=== PATIENT | female | born 1960 | race Caucasian/White ===

== ENCOUNTER → 2024-05-03 | Outpatient (CLI) | payer OTHER, SELFPAY ==
[2024-05-03 13:10] LABS: Basophils # (Auto) 0.1 Thou/mm3 (0.0-0.2); Basophils % (Auto) 1 % (0-2.5); Eosinophils # (Auto) 0.1 Thou/mm3 (0.0-0.5); Eosinophils % (Auto) 1 % (0-10); Hematocrit 40.3 % (36.0-46.0); Hemoglobin 13.7 g/dL (12.0-16.0); Immature Granulocytes % (Auto) 0 % (0-0); Immature Granulocytes Auto 0.03 Thou/mm3 (0.00-0.00); Lymphocytes # (Auto) 2.7 Thou/mm3 (1.0-4.8); Lymphocytes % (Auto) 35 % (10-50); Mean Corpuscular Hemoglobin 31.6 pg (25.0-35.0); Mean Corpuscular Volume 93 fL (80-100); Monocytes # (Auto) 0.6 Thou/mm3 (0.0-0.8); Monocytes % (Auto) 8 % (0-12); Neutrophils # (Auto) 4.3 Thou/mm3 (1.8-7.7); Neutrophils % (Auto) 55 % (37-80); Nucleated Red Blood Cell % 0 /100 WBC (0); Platelet Count 300 Thou/mm3 (140-440); RDW Standard Deviation 45.7 fL (36.4-46.3); Red Blood Count 4.34 Miln/mm3 (4.00-5.20); White Blood Count 7.8 Thou/mm3 (3.6-11.0)
[2024-05-03 13:24] LABS: Alanine Aminotransferase 35 U/L (10-49); Albumin, Serum 4.4 gm/dL (3.4-4.8); Alkaline Phosphatase 70 U/L (46-116); Anion Gap 8 (7-16); Aspartate Amino Transferase 19 U/L (0-34); BUN/Creatinine Ratio 24 Ratio (12-20); Bilirubin,Total 0.4 mg/dL (0.3-1.2); Blood Urea Nitrogen 17 mg/dL (9-23); Calcium 9.5 mg/dL (8.3-10.6); Calcium (Corrected) 9.5 mg/dL (8.5-10.1); Carbon Dioxide 26.3 mMol/L (20.0-31.0); Chloride 107 mMol/L (98-107); Creatinine (Component) 0.7 mg/dL (0.6-1.3); Globulin 2.2 gm/dL (2.3-3.5); Glucose 95 mg/dL (74-106); Osmolality,Calculated 282 (275-295); Potassium 4.1 mMol/L (3.4-5.1); Sodium 141 mMol/L (136-145); Total Protein 6.6 gm/dL (5.7-8.2); eGFR > 60 See Note
== END | disposition home or self-care (01) ==
PROVIDERS: PCP Family Medicine; Referring Provider Physician Assistant; Visit Provider Physician Assistant
DX: K62.5 Hemorrhage of anus and rectum (principal); Z76.89 Persons encountering health services in other specified circumstances
CPT/HCPCS: 36415; 80053; 85025

== ENCOUNTER → 2024-05-06 | Outpatient (CLI) | payer OTHER, SELFPAY ==
[2024-05-06 09:51] LABS: OBS Card Expiration Date 2026-09; OBS Card Lot # 23001; OBS Performed By LAB; OBS QC OK? Yes
[2024-05-06 12:01] LABS: OBS Developer Lot # 23003; Occult Blood, Stool Negative (Negative); Occult Blood, Stool #2 Negative (Negative); Occult Blood, Stool #3 Negative (Negative)
== END | disposition home or self-care (01) ==
LOC: SLDO 09:45
PROVIDERS: PCP Physician Assistant; Referring Provider Physician Assistant; Visit Provider Physician Assistant
DX: Z12.11 Encounter for screening for malignant neoplasm of colon (principal); K62.5 Hemorrhage of anus and rectum; Z76.89 Persons encountering health services in other specified circumstances
CPT/HCPCS: 82270

== ENCOUNTER 2024-05-31 07:00 | Day surgery (SDC) | payer OTHER, SELFPAY ==
[2024-05-31] VITALS (24 sets, daily range): BP systolic 101–181; BP diastolic 44–108; PULSE 70–99; RESP 12–20; TEMP 36.2–36.4; O2SAT 93–100; BMI 36.2
[2024-05-31] MEDS: DiphenhydrAMINE INJ 50 MG/ML VIAL 25 MG IV (09:27)
[2024-05-31] MEDS: fentaNYL CIT INJ 50 mCg/ML AMP 2ML (ASD USE ONLY) IV (09:28)
[2024-05-31] MEDS: MEPERIDINE INJ 25 MG/ML VIAL (ASD USE ONLY) IV (09:28)
[2024-05-31] MEDS: MIDAZOLAM INJ 1 MG/ML VIAL 2 ML (ASD USE ONLY) 2 MG IV (09:29)
--- NOTE | 2024-05-31 10:25 | SUR.PHASEII ---
pt refused juice or water intake.
== END 2024-05-31 10:45 | disposition home or self-care (01) ==
PROVIDERS: PCP Family Medicine; Referring Provider Surgery; Visit Provider Surgery
PROC: 0DBE8ZX Excision of Large Intestine, Via Natural or Artificial Opening Endoscopic, Diagnostic (ICD-10-PCS; CPT 45380; principal; 2024-05-31 11:30)
DX: C20 Malignant neoplasm of rectum (principal); K57.31 Diverticulosis of large intestine without perforation or abscess with bleeding
CPT/HCPCS: 45381; 45385; A4649; J1200; J2175; J2250; J3010

== ENCOUNTER 2024-06-02 13:02 | Outpatient (AMB) | payer OTHER, SELFPAY ==
[2024-06-02 13:14] VITALS: PULSE 83; RESP 18; TEMP 35.6; O2SAT 94; BMI 36.1
--- NOTE | 2024-06-02 13:14 | PD.GSCLVISIT ---
Vital Signs - [facility] 06/02/24 13:14 Height 1.63 m Height Method Stated Weight 95.878 kg Weight Measurement Method Standing Scale BMI 36.1 Blood Pressure Source Automatic Cuff Blood Pressure Location Right Upper Arm Position Sitting Respiration 18 Pulse 83 Pulse Source Monitor Temp 96.0 F L Temp Source Temporal Artery Scan Pulse Oximetry (%) 94 L Oxygen Delivery Method Room Air Med/Allergies Allergies & Medications Allergies No Known Drug Allergies Allergy (Verified 06/02/24 13:16) Medication Reconciliation No Known Home Medications 08/31/23 [History Confirmed 06/02/24] MA Intake Visit Data Collection New Patient or Established: Established Patient (seen at [facility] within 3 years) Seen by Clinical Staff ONLY (RN/MA): No Reason for Visit:: COLONOSCOPY RESULTS Pain Present Currently: No Pain Location: Buttock Pain scale:: 0 Pain Scale Used: Curry-Tomlin/Numerical Research Administrator Required: No PCP or OBGYN visit in last 3 months: Yes Hx Now: No Do You Feel Safe at Home: Yes Authorities Contacted: N/A Smoking Status Smoking Status: Never smoker Immunization / Flu Flu Vaccine in the Last 12 Months: No Flu Vaccine Exclusion Criteria: No Exclusion Criteria Past Medical History Past Medical History NEUROLOGIC: Negative Neurological Disorders or Seizures CARDIAC: Negative Cardiac Disorders or Congestive Heart Failure RESPIRATORY: Negative Chronic Obstructive Pulmonary Disease (COPD) GASTROINTESTINAL: Positive Gastrointestinal Disorders (rectal bleeding, LLQ pain) GENITOURINARY: Negative Genitourinary Disorders or Renal Disease MUSCULOSKELETAL: Negative Musculoskeletal Disorders ENDOCRINE: Negative Diabetes Mellitus Type 1 or Diabetes Mellitus Type 2 PSYCHO/SOCIAL: Negative Depression or Anxiety OTHER HISTORY: Negative Blood Transfusions, Blood Transfusion Reaction (na), Anesthesia Reactions, Chicken Pox, Measles or Mumps Surgical History SURGICAL: Positive Section Social History SMOKING STATUS: Smoking status: Never smoker SECOND HAND EXPOSURE: second hand exposure: No ALCOHOL: Alcohol Intake: Never Travel Risk Travel Hx Recent Travel: No HPI HPI Narrative 64F otherwise healthy who is here to discuss colonoscopy results. Pt was found to have well-differentiated rectal adenocarcinoma. She reports feeling well overall with no pain and no bleeding since colonoscopy. She states that she underwent CT AP in February to evaluate rectal bleeding and was advised it was normal ROS Review of Systems Systems Reviewed: All systems reviewed, normal except as documented Objective/Exam General General Appearance: alert, cooperative and well groomed Resp Respiratory exam: Absent respiratory distress Results Pathology of rectal mass: invasive adenocarcinoma well-differentiated Assessment & Plan Diagnosis / Problem List (1) Rectal adenocarcinoma: Status: Acute Assessment & Plan: 64F with newly diagnosed rectal adenocarcinoma, currently feeling well with no complaints. I explained that staging workup will include pelvic MRI and CT AP which I have ordered stat, and I sent a referral to oncology as well. Pending staging workup we will discuss surgery in greater detail. All questions were answered and pt expressed understanding Office Procedures GNS Level of Care Nursing/Assessment Patient Status: Established Patient Nursing Assessment/Reassesment: Medication Reconciliation, Update PMH in EMR and Vital Signs Coordination of Care: Complex Care and Chronic Disease 1-5, Education Complex Pt/Fam, Consent,records obtained, informed consent, Results/Orders obtained and Staff clarify orders Established Patient Charge Established Patient Point Assignment: 95 Established Patient Point Charge: EP Level 3 (80-115) Patient Portal Questionaires Social History Tobacco History Smoking Status: Never smoker Second Hand Smoke Exposure: No Alcohol History Alcohol Intake: Never Domestic Abuse History Do You Feel Safe at Home: Yes Review of Systems Report any current symptoms Only answer those that you have currently: Past Medical History Past Medical History Have you ever been diagnosed with any of the following: Neurological Problems Seizures: No Cardiology Problems Congestive Heart Failure: No Respiratory Problems Chronic Obstructive Pulmonary Disease (COPD): No Genital/Urinary Problems Renal Disease: No Endocrine Problems Diabetes Mellitus Type 1: No Diabetes Mellitus Type 2: No Psychologic Problems Depression: No Anxiety: No Other Problems Blood Transfusions: No Blood Transfusion Reaction: No (na) Anesthesia Reactions: No Chicken Pox: No Measles: No Mumps: No
== END 2024-06-02 13:17 | disposition home or self-care (01) ==
LOC: HODSRG 13:02
PROVIDERS: PCP Family Medicine; Referring Provider Family Medicine; Supervising Provider Surgery; Visit Provider Surgery
DX: C20 Malignant neoplasm of rectum (principal)
CPT/HCPCS: 99213; G0463

== ENCOUNTER → 2024-06-10 | Outpatient (CLI) | payer OTHER, SELFPAY ==
[2024-06-09 16:35] LABS: Albumin, Serum 4.4 gm/dL (3.4-4.8); Anion Gap 9 (7-16); BUN/Creatinine Ratio 24 Ratio (12-20); Blood Urea Nitrogen 17 mg/dL (9-23); Calcium 9.4 mg/dL (8.3-10.6); Calcium (Corrected) 9.4 mg/dL (8.5-10.1); Carbon Dioxide 27.6 mMol/L (20.0-31.0); Chloride 106 mMol/L (98-107); Creatinine (Component) 0.7 mg/dL (0.6-1.3); Glucose 98 mg/dL (74-106); Osmolality,Calculated 286 (275-295); Phosphorous 3.1 mg/dL (2.4-5.1); Potassium 4.2 mMol/L (3.4-5.1); Sodium 143 mMol/L (136-145); eGFR > 60 See Note
--- NOTE | 2024-06-10 | XR_ITS ---
Examination: CT chest with intravenous contrast CT abdomen with intravenous contrast CT pelvis with intravenous contrast 2-D coronal and sagittal reconstructions Time of exam: June 10, 2024 0756 hours INDICATIONS: Diagnosis this month malignant neoplasm of the rectum on colonoscopy, rectal bleeding, lower abdominal pain several weeks, staging CTDI: vol (mGy) : 32.91 DLP: (mGycm): 1354 Technique: Multiple axial images of the chest, abdomen and pelvis with intravenous contrast, 3.0 mm slice thickness. Images obtained post intravenous injection Isovue 370 60 cc. 2-D sagittal and coronal reconstructions. Low dose protocols were performed. One or more of the following dose reduction techniques were used; automated exposure control, adjustment of the mA and/or KV according to patient size, use of iterative reconstruction technique. Findings: No thoracic aortic aneurysm dilatation No pulmonary artery emboli No paratracheal tracheobronchial or bronchopulmonary adenopathy Nodule with calcifications in the right upper lobe, 7 mm, image 131 No pneumonia, pulmonary edema or pleural disease Hepatomegaly 19 cm No liver or splenic lesion Small retrocardiac gastric hernia No pancreatic or adrenal mass No renal or ureteral calculi No periaortic pericaval lymphadenopathy Normal appendix No bowel obstruction No definite colonic lesion identified No pelvic lymphadenopathy Moderate osteopenia IMPRESSION: No findings of metastatic disease No uterine or adnexal mass
== END | disposition home or self-care (01) ==
PROVIDERS: PCP Physician Assistant; Referring Provider Physician Assistant; Visit Provider Physician Assistant
DX: K62.5 Hemorrhage of anus and rectum (principal); C20 Malignant neoplasm of rectum
CPT/HCPCS: 36415; 71260; 74177; 80069; A4649; Q9967

== ENCOUNTER 2024-06-15 13:47 | Outpatient (RCR) | payer OTHER, SELFPAY ==
--- NOTE | 2024-06-15 17:01 | CTCCONSULT_ITS ---
[facility] [address] [place], [place] [address] Consultation Note Date: 06/15/2024 MR#: [id number] Name: MARCIANO JONES : 1960 Dx: C20 Malignant neoplasm of rectum Attending physician. Little Stanton PA-C Referring physician. Lanny Boyer MD Reason for consultation. Presumably recent diagnosis of colorectal cancer referred to the cancer treatment center. 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 Underwent colonoscopy performed by Dr. Boyer, with initial digital exam being negative. Findings revealed nonobstructive large mass around 15 cm proximal to the anus which is known circumferential. There was multiple large mouth diverticula found in the transverse colon and ascending colon. Biopsy of the rectal mass revealed invasive adenocarcinoma well-differentiated with no loss of expression. Patient had CT scan 06/10/2024 chest abdomen pelvis.which revealed no finding of metastatic disease uterine or adnexal masses. Patient has MRI of the pelvis pending this Thursday. Patient now referred to the cancer treatment center. Past Medical History: History of ear infections chickenpox tonsillitis Meds. 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 2 pregnancies 1 lives in [place] denies drinking smoking Review of Systems: Has had some nocturia heartburn muscle pain weight gain Physical Exam: General: Adequate nourished appearing lady in no acute distress HEENT: Atraumatic no cephalic extraocular is intact no oral lesion no cervical or supraclavicular adenopathy CV: Chest clear to all station heart regular rate and rhythm ABD: Soft no organomegaly or tenderness EXT: No signs of clubbing or edema. Assessment: 1. Patient with rectal mass 15 cm from the anal verge. Biopsy + adenocarcinoma 2. No mass noted on CT scan MRI pelvis is pending. 3. Has follow-up with medical oncologist Dr. Guido in a few days. 4. Will make recommendations regarding comprehensive treatment afterward. 5 Thank you very much for allowing us to evaluate this very nice patient and [employer] employee.. Electronically signed by: Pascual Ramos MD, DABR 06/15/2024 4:58 PM
== END 2024-06-17 23:59 | disposition home or self-care (01) ==
LOC: SCTC 13:47
PROVIDERS: PCP Physician Assistant; Referring Provider Surgery; Visit Provider Radiology Therapeutic Radiology
DX: C20 Malignant neoplasm of rectum (principal)
CPT/HCPCS: 99213; G0463

== ENCOUNTER → 2024-06-18 | Outpatient (CLI) | payer OTHER, SELFPAY ==
--- NOTE | 2024-06-18 14:45 | XR_ITS ---
Examination: MRI pelvis with intravenous contrast. MRI pelvis without intravenous contrast. Date and time of exam: June 18, 2024 1424 hrs. Indications: Diagnosis malignant neoplasm rectum on colonoscopy with biopsy May 31, 2024 Technique: Multiple axial, sagittal and coronal sections of the pelvis obtained. Transverse images, TR 6020, TE 107. T1 weighted transverse images, TR 582, TE 9.5. T2-weighted sagittal images, TR 4000, TE 105. T2-weighted sagittal images, TR 4000, TE 5. Coronal images, TR 4210, TE 107. Axial and coronal images are obtained post 18 cc intravenous injection, gadolinium. Findings: No free fluid in the pelvis Axial image 19 demonstrates a right external iliac lymph node, 14 mm Right common femoral lymph nodes, the largest 8 mm No sigmoid colon or rectal mass is depicted There is minimal thickening of the rectal wall Uterine areas of fibroid degeneration, the largest 22 mm Homogeneous osseous marrow signal Impression: Minimal rectal wall thickening, no discrete rectal mass 14 mm right external iliac lymph node, small right common femoral lymph nodes
--- NOTE | 2024-06-18 21:02 | PRELIM_ITS ---
MRI of the pelvis without and with intravenous gadolinium. June 18, 2024 at 1424 hours Clinical History: Rectal CA. Comparison: None. Findings: There is thickening versus underdistention of the rectum. No evidence of discrete mass identified within the rectum. The perirectal fat planes appear unremarkable. There are uterine fibroids, the largest in the left lateral wall measures 2.4 x 2.2 cm. The endometrium is normal in thickness and appears unremarkable. The junctional zone is normal in thickness and appearance. Both ovaries appear unremarkable. There are prominent right external iliac and common femoral lymph nodes, the largest right external iliac lymph node measuring 1.1 x 1.1 cm. Degenerative changes are identified in the spine. No free fluid is noted. Impression: Thickening versus underdistention of the rectum. Recommend clinical correlation. Report Electronically Signed By: Shay Matos 06/18/2024 9:02:06 PM [EST]
== END | disposition home or self-care (01) ==
PROVIDERS: PCP Surgery; Referring Provider Radiology Therapeutic Radiology; Visit Provider Surgery
DX: C20 Malignant neoplasm of rectum (principal)
CPT/HCPCS: 72197; A9579

== ENCOUNTER → 2024-06-29 | Outpatient (CLI) | payer OTHER, SELFPAY ==
[2024-06-29 15:45] LABS: Basophils # (Auto) 0.1 Thou/mm3 (0.0-0.2); Basophils % (Auto) 1 % (0-2.5); Eosinophils # (Auto) 0.1 Thou/mm3 (0.0-0.5); Eosinophils % (Auto) 2 % (0-10); Hematocrit 37.2 % (36.0-46.0); Hemoglobin 12.6 g/dL (12.0-16.0); Immature Granulocytes % (Auto) 0 % (0-0); Immature Granulocytes Auto 0.01 Thou/mm3 (0.00-0.00); Lymphocytes # (Auto) 2.6 Thou/mm3 (1.0-4.8); Lymphocytes % (Auto) 38 % (10-50); Mean Corpuscular HGB Conc 33.9 g/dl (31.0-37.0); Mean Corpuscular Hemoglobin 32.1 pg (25.0-35.0); Mean Corpuscular Volume 95 fL (80-100); Monocytes # (Auto) 0.6 Thou/mm3 (0.0-0.8); Monocytes % (Auto) 8 % (0-12); Neutrophils # (Auto) 3.5 Thou/mm3 (1.8-7.7); Neutrophils % (Auto) 52 % (37-80); Nucleated Red Blood Cell % 0 /100 WBC (0); Platelet Count 285 Thou/mm3 (140-440); RDW Standard Deviation 47.4 fL (36.4-46.3); Red Blood Count 3.92 Miln/mm3 (4.00-5.20); White Blood Count 6.9 Thou/mm3 (3.6-11.0)
[2024-06-29 16:02] LABS: Ferritin 102 ng/mL (7.3-270.7); Iron 102 mcg/dL (50-170); Percent Iron Saturation 30 % (20-55); Total Iron Binding Capacity 336 mcg/dL (250-425); Unsaturated Iron Binding 234 (225-295)
[2024-06-29 16:03] LABS: Alanine Aminotransferase 40 U/L (10-49); Albumin, Serum 4.1 gm/dL (3.4-4.8); Alkaline Phosphatase 63 U/L (46-116); Anion Gap 6 (7-16); Aspartate Amino Transferase 24 U/L (0-34); BUN/Creatinine Ratio 25 Ratio (12-20); Bilirubin,Total 0.3 mg/dL (0.3-1.2); Blood Urea Nitrogen 15 mg/dL (9-23); Calcium 9.3 mg/dL (8.3-10.6); Calcium (Corrected) 9.3 mg/dL (8.5-10.1); Carbon Dioxide 29.7 mMol/L (20.0-31.0); Chloride 108 mMol/L (98-107); Creatinine (Component) 0.6 mg/dL (0.6-1.3); Globulin 2.1 gm/dL (2.3-3.5); Glucose 110 mg/dL (74-106); Osmolality,Calculated 288 (275-295); Potassium 3.4 mMol/L (3.4-5.1); Sodium 144 mMol/L (136-145); Total Protein 6.2 gm/dL (5.7-8.2); eGFR > 60 See Note
[2024-06-29 16:05] LABS: Carcinoembryonic Antigen < 0.5 ng/mL (0.0-5.0); Folate 16.55 ng/mL (>5.38)
== END | disposition home or self-care (01) ==
LOC: SCTO 14:00
PROVIDERS: PCP Physician Assistant; Referring Provider Internal Medicine Hematology & Oncology; Visit Provider Internal Medicine Hematology & Oncology
DX: C20 Malignant neoplasm of rectum (principal)
CPT/HCPCS: 36415; 80053; 82378; 82728; 82746; 83540; 83550; 85025

== ENCOUNTER 2024-06-30 07:59 | Outpatient (RCR) | payer OTHER, SELFPAY ==
--- NOTE | 2024-06-29 12:44 | CTCCONSULT_ITS ---
Patient: MARCIANO NUR : 1960 MR#: [id number] Page 2 of 2 CONSULTATION NOTE DATE OF CONSULTATION: 06/29/2024 NAME: MARCIANO NUR ACCOUNT: [id number] : 1960 AGE: 64 REFERRING PHYSICIAN: Emmett Guido MD PRIMARY PHYSICIAN: REASON FOR VISIT: New rectal cancer diagnosis ONCOLOGY HISTORY: DIAGNOSIS: Malignant neoplasm of rectum [ICD10] C20 DATE OF DIAGNOSIS: 05/31/2024 STAGE/TNM: Rectal adenocarcinoma at least stage III as patient have at least 2 lymph nodes which look very suspicious TREATMENT HISTORY: Care?Plan Start?Date Cycle Day Intent HISTORY OF PRESENT ILLNESS: 64-year-old female who works is here to establish care. Patient is having bleeding per rectum in February. Patient was seen at a local hospital and was told to follow-up with the primary care. Patient eventually had a colonoscopy and underwent biopsy which showed rectal adenocarcinoma. Patient denies any other complaints. No bleeding per rectum right now. OTHER MEDICAL HISTORY/CONDITIONS: CHICKENPOX MUMPS TONSILLITIS EAR INFECTIONS C SECTION (1989) TONSILLECTOMY A CHILD TUBAL LIGATION (1999) OVARIAN CYST REMOVAL COLONOSCOPY DR RENDON 05/31/24 FAMILY HISTORY: Father:?DENIES Mother:?DENIES Sibling:?DENIES Children:?DENIES Cancer?History:?COLON?CANCER?05/2024 Patient?denies?family?cancer?history. 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 Calcium 600 + D - As directed 2. Emla - 2.5-2.5 % As directed 3. Garlique - As directed 4. One A Day - As directed 5. Osteo Bi-Flex - As directed Medications Last Reconciled by Alesia Razo MD on 06/29/2024 ALLERGIES: No Known Drug Allergies REVIEW OF SYSTEMS: A complete 14-point review of systems was performed and is negative except as noted in interval history. PHYSICAL EXAMINATION: VITAL SIGNS: Temperature?98.9, B/P?162/89, Height?64?inches, Oxygen?Saturation?95% Weight?211?lbs (Change?since?06/15/24:?-4?lbs) PAIN: 0 - No pain ECOG Performance Status: 0 - Asymptomatic and fully active GENERAL APPEARANCE: Appears well, in no apparent distress, appropriately interactive. HEENT: Normocephalic, no temporal wasting, normal conjunctiva, no scleral icterus, normal hearing, lips without lesions, neck normal range of motion. CARDIOVASCULAR: Not assessed. PULMONARY: Normal respiratory effort, no respiratory distress or use of accessory muscles, speaking in full sentences, no tachypnea. EXTREMITIES: No pedal edema or cyanosis. SKIN: Normal skin appearance. NEUROLOGIC: Alert and oriented x4. PSHYCHIATRIC: Appropriate affect, mood normal, behavior normal, intact thought and speech. LABORATORY DATA: I have personally reviewed and interpreted each of the patient?s relevant lab tests, abnormal findings are below: Date 06/09/24 ??GLUCOSE,RANDOM?(mg/dL) 98 ??BLOOD?UREA?NITROGEN?(mg/dL) 17 ??CREATININE?(mg/dL) 0.70 ??SODIUM?(mmol/L) 143 ??POTASSIUM?(mmol/L) 4.2 ??CHLORIDE?(mmol/L) 106 ??ALBUMIN,?SERUM?(gm/dl) 4.4 ??CALCIUM,?SERUM?(mg/dL) 9.4 ??CALCIUM?SERUM?(CORRECTED)?(mg/dL) 9.4 ASSESSMENT/PLAN: #1 rectal adenocarcinoma Likely stage IIIa tumor Patient have few lymph nodes visible on the MRI Patient's tumor is 15 cm from the anal verge Discussed with patient's surgeon and she want to see Ms. Nur TI If patient proceed with surgery will need adjuvant chemotherapy I requested port catheter placement Will start chemotherapy once patient has completed surgery and have complete staging CBC CMP iron studies ferritin CEA RETURN TO CLINIC: 2 weeks BILLING AND COMPLIANCE: I reviewed external records from providers outside my specialty as summarized above. I spent a total of 50 minutes on this patient?s care on the day of their visit excluding time spent related to any billed procedures. This time includes time spent with the patient as well as time spent documenting in the medical record, reviewing patients records and tests, obtaining history, placing orders, communicating with other healthcare professionals, counseling the patient, family or caregiver, and/or care coordination for the diagnoses above. Electronically Signed by: Emmett Guido MD T: 12:41 PM CC: PCP: Referring: Emmett Guido This document was completed utilizing speech recognition software. Grammatical errors, random word insertions, pronoun errors, and incomplete sentences are an occasional consequence of this system due to software limitations, ambient noise, and hardware issues. Any formal questions or concerns about the content, text or information contained within the body of this dictation should be directly addressed to the provider for clarification.
== END 2024-07-15 23:59 | disposition home or self-care (01) ==
LOC: SCTC 07:59
PROVIDERS: PCP Physician Assistant; Referring Provider Internal Medicine Hematology & Oncology; Visit Provider Radiology Therapeutic Radiology
DX: C20 Malignant neoplasm of rectum (principal)
CPT/HCPCS: 99213; G0463

== ENCOUNTER 2024-06-30 10:42 | Outpatient (AMB) | payer OTHER, SELFPAY ==
[2024-06-30 10:41] VITALS: BP 146/82; PULSE 92; RESP 18; TEMP 36.3; O2SAT 96; BMI 37.0
--- NOTE | 2024-06-30 10:41 | PD.GSCLVISIT ---
Vital Signs - [facility] Clinic 06/30/24 10:41 Height 1.63 m Height Method Stated Weight 98.6 kg Weight Measurement Method Standing Scale BMI 37.0 BP 146/82 H Blood Pressure Source Automatic Cuff Blood Pressure Location Right Upper Arm Position Sitting Respiration 18 Pulse 92 Pulse Source Monitor Temp 97.3 F Temp Source Temporal Artery Scan Pulse Oximetry (%) 96 Oxygen Delivery Method Room Air Med/Allergies Allergies & Medications Allergies No Known Drug Allergies Allergy (Verified 06/30/24 10:43) Medication Reconciliation metronidazole 500 mg tablet 1,000 mg (2 x 500 mg) PO TID #6 tabs 06/30/24 [Rx] neomycin 500 mg tablet 1 g (2 x 500 mg) PO TID #6 tabs 06/30/24 [Rx] peg 3350-electrolytes 236 gram-22.74 gram-6.74 gram-5.86 gram solution (Golytely) 240 ml PO Q10M #4,000 mL 06/30/24 [Rx] MA Intake Visit Data Collection New Patient or Established: Established Patient (seen at [facility] within 3 years) Seen by Clinical Staff ONLY (RN/MA): No Reason for Visit:: FOLLOW UP Pain Present Currently: No Pain scale:: 0 Pain Scale Used: Curry-Tomlin/Numerical Assembler Cards And Announcements Required: No PCP or OBGYN visit in last 3 months: Yes Hx Now: No Do You Feel Safe at Home: Yes Authorities Contacted: N/A Smoking Status Smoking Status: Never smoker Immunization / Flu Flu Vaccine in the Last 12 Months: Yes Flu Vaccine Exclusion Criteria: Already Received Past Medical History Past Medical History NEUROLOGIC: Negative Neurological Disorders or Seizures CARDIAC: Negative Cardiac Disorders or Congestive Heart Failure RESPIRATORY: Negative Chronic Obstructive Pulmonary Disease (COPD) GASTROINTESTINAL: Positive Gastrointestinal Disorders (rectal bleeding, LLQ pain) GENITOURINARY: Negative Genitourinary Disorders or Renal Disease ENDOCRINE: Negative Diabetes Mellitus Type 1 or Diabetes Mellitus Type 2 PSYCHO/SOCIAL: Negative Depression or Anxiety OTHER HISTORY: Negative Blood Transfusions, Blood Transfusion Reaction (na), Anesthesia Reactions, Chicken Pox, Measles or Mumps Surgical History SURGICAL: Positive Section Social History SMOKING STATUS: Smoking status: Never smoker SECOND HAND EXPOSURE: second hand exposure: No ALCOHOL: Alcohol Intake: Never HPI HPI Narrative Since last visit pt underwent staging workup showing no rectal mass on MRI, a slightly enlarged external iliac lymph node but no evidence of distant metastases. She reports feeling well overall with no pain, no change in bowel habits, no concerns Objective/Exam General General Appearance: alert, cooperative and well groomed Resp Respiratory exam: Absent respiratory distress Results MRI, CT CAP reviewed Assessment & Plan Diagnosis / Problem List (1) Rectal adenocarcinoma: Status: Acute Assessment & Plan: 64F diagnosed with rectal adenocarcinoma with no signs of distant metastases on preoperative workup. I explained that minimally invasive surgery is the standard of care, and unfortunately I cannot offer her this option but if she is okay with proceeding with laparotomy it is also reasonable to pursue. I explained risks of surgery including bleeding, infection, anastomotic leak, injury to nearby structures requiring urinary diversion or bladder repair, as well as the possibility of a temporary diverting ostomy. We discussed preoperative prep to include GoLytely as well as preoperative antibiotics to reduce the risk of postoperative infection. All questions were answered and patient is agreeable to proceeding with laparotomy Plan: Scheduled for exploratory laparotomy, low anterior resection, possible diverting ostomy Saturday 07/08 Preoperative GoLytely as well as antibiotic prep ordered for 07/07 Office Procedures GNS Level of Care Nursing/Assessment Patient Status: Established Patient Nursing Assessment/Reassesment: Medication Reconciliation, Update PMH in EMR and Vital Signs Coordination of Care: Complex Care and Chronic Disease 1-5, Education Complex Pt/Fam, Consent,records obtained, informed consent, Results/Orders obtained and Staff clarify orders Established Patient Charge Established Patient Point Assignment: 95 Established Patient Point Charge: EP Level 3 (80-115) Patient Portal Questionaires Social History Tobacco History Smoking Status: Never smoker Second Hand Smoke Exposure: No Alcohol History Alcohol Intake: Never Domestic Abuse History Do You Feel Safe at Home: Yes Review of Systems Report any current symptoms Only answer those that you have currently: Past Medical History Past Medical History Have you ever been diagnosed with any of the following: Neurological Problems Seizures: No Cardiology Problems Congestive Heart Failure: No Respiratory Problems Chronic Obstructive Pulmonary Disease (COPD): No Genital/Urinary Problems Renal Disease: No Endocrine Problems Diabetes Mellitus Type 1: No Diabetes Mellitus Type 2: No Psychologic Problems Depression: No Anxiety: No Other Problems Blood Transfusions: No Blood Transfusion Reaction: No (na) Anesthesia Reactions: No Chicken Pox: No Measles: No Mumps: No
== END 2024-06-30 10:55 | disposition home or self-care (01) ==
LOC: HODSRG 10:42
PROVIDERS: PCP Physician Assistant; Referring Provider Physician Assistant; Supervising Provider Surgery; Visit Provider Surgery
DX: C20 Malignant neoplasm of rectum (principal)
CPT/HCPCS: 99213; G0463

== ENCOUNTER 2024-07-08 05:40 | Inpatient (IN) | payer OTHER, SELFPAY ==
[2024-07-07 09:17] VITALS: BMI 38.9
--- NOTE | 2024-07-07 09:25 | EKG_ITS ---
[facility] Test Date: 2024-07-07 Pat Name: MARCIAON JONES Department: Room: - Gender: Female Litigation Coordinator: VICKIE : 1960 Requested By: Titi Zambrano Order Number: [id number] Reading MD: Titi Zambrano Measurements Intervals [place] Rate: 59 P: 54 DE: 186 QRS: 19 QRSD: 86 T: 29 QT: 413 QTc: 411 Interpretive Statements SINUS BRADYCARDIA LOW QRS VOLTAGE IN PRECORDIAL LEADS No previous ECG available for comparison /store/S0/[id number]/ecg/[id number].pdf
[2024-07-07 12:15] LABS: Basophils # (Auto) 0.1 Thou/mm3 (0.0-0.2); Basophils % (Auto) 1 % (0-2.5); Eosinophils # (Auto) 0.1 Thou/mm3 (0.0-0.5); Eosinophils % (Auto) 2 % (0-10); Hemoglobin 13.2 g/dL (12.0-16.0); Immature Granulocytes % (Auto) 0 % (0-0); Immature Granulocytes Auto 0.02 Thou/mm3 (0.00-0.00); Lymphocytes # (Auto) 2.6 Thou/mm3 (1.0-4.8); Lymphocytes % (Auto) 41 % (10-50); Mean Corpuscular Hemoglobin 31.1 pg (25.0-35.0); Mean Corpuscular Volume 94 fL (80-100); Monocytes # (Auto) 0.6 Thou/mm3 (0.0-0.8); Monocytes % (Auto) 9 % (0-12); Neutrophils % (Auto) 47 % (37-80); Nucleated Red Blood Cell % 0 /100 WBC (0); Platelet Count 281 Thou/mm3 (140-440); RDW Standard Deviation 45.8 fL (36.4-46.3); Red Blood Count 4.24 Miln/mm3 (4.00-5.20); White Blood Count 6.4 Thou/mm3 (3.6-11.0)
[2024-07-07 12:24] LABS: Alanine Aminotransferase 42 U/L (10-49); Albumin, Serum 4.6 gm/dL (3.4-4.8); Albumin/Globulin Ratio 1.9 (1.2-2.2); Alkaline Phosphatase 65 U/L (46-116); Anion Gap 10 (7-16); Aspartate Amino Transferase 24 U/L (0-34); BUN/Creatinine Ratio 23 Ratio (12-20); Bilirubin,Total 0.5 mg/dL (0.3-1.2); Blood Urea Nitrogen 16 mg/dL (9-23); Calcium 9.4 mg/dL (8.3-10.6); Calcium (Corrected) 9.4 mg/dL (8.5-10.1); Carbon Dioxide 27.2 mMol/L (20.0-31.0); Chloride 104 mMol/L (98-107); Creatinine (Component) 0.7 mg/dL (0.6-1.3); Estimated Creatinine Clearance 93.8 mL/min (>60); Globulin 2.4 gm/dL (2.3-3.5); Glucose 95 mg/dL (74-106); Osmolality,Calculated 282 (275-295); Potassium 3.9 mMol/L (3.4-5.1); Sodium 141 mMol/L (136-145); eGFR > 60 See Note
[2024-07-07 12:40] LABS: Partial Thromboplastin Time 24.5 Seconds (22.0-36.0); Prothrombin Time 10.5 Seconds (9.0-12.2)
[2024-07-08] VITALS (18 sets, daily range): BP systolic 108–137; BP diastolic 60–79; PULSE 60–89; RESP 10–19; TEMP 36.2–36.9; O2SAT 92–97; BMI 38.5
[2024-07-08] MEDS: RINGERS LACTATED 1000 ML 1,000 ML 20 ML IV (06:58)
--- NOTE | 2024-07-08 09:43 | ESOP_ITS ---
Date of Procedure 07/08/24 Pre Op Diagnosis Rectosigmoid cancer Post Op Diagnosis Same Procedure Exploratory laparotomy, resection of rectosigmoid, colorectal anastomosis Findings Rectosigmoid mass identified by tattoo Procedure Description After discussion of risks and benefits, pt was brought to OR, SCDs were placed and general anesthesia was induced. She was placed in lithotomy position with proper padding and a Cordova catheter was placed. The rectum was irrigated using a lubricated 30 [place] Malecot catheter and Betadine. She was prepped and draped in the usual sterile fashion. After timeout a low midline incision was made along patient's existing scar. The incision was extended a few centimeters cranially to the left of the umbilicus. The tissues were dissected with electrocautery until the peritoneum was reached. The small bowel was packed away in the right upper quadrant and patient was placed in Trendelenburg. The sigmoid was noted to be quite redundant and the tattoo was noted at the rectosigmoid junction. The sigmoid was mobilized along the TME plane using an Enseal device and the proximal sigmoid was transected using a 75 blue MICHAEL approximately 15 cm proximal to the tattoo. Once the rectosigmoid was fully mobilized the distal transection was completed with a green contour stapler. AAA sizers were placed into the rectum starting with a 25 mm and progressing to a 31 mm which fit easily. At that point I decided to use a 31 mm EEA stapler. The anvil was placed into the sigmoid after I cut the staple line of the sigmoid I then introduced the anvil into the lumen. The anvil was brought through a colotomy on the anterior aspect of the sigmoid and the sigmoid was then stapled again distal to this anvil using a 75 mm MICHAEL. The EEA was then introduced into the rectum and the spike was deployed posterior to the staple line. The spike and the anvil were connected securely and the stapler was closed. After 15 seconds the stapler was then fired. The stapler was then opened with 2 full revolutions and gently eased out of the rectum. The proximal and distal donuts were examined and noted to be intact. A leak test was performed with a rigid sigmoidoscope while I manually clamped the sigmoid proximal to the anastomosis. The anastomosis was inflated with gentle pressure and no bubbles were identified. The pelvis was gently irrigated and there were no signs of bleeding. A TAP block was performed using 30 cc of half percent Marcaine. The fascia was closed with 0 PDS and the subcutaneous tissue was approximated with a 2-0 Vicryl suture. The skin was closed with zuleima and covered with gauze and Tegaderm. Patient was returned to supine position and extubated without complication. She was brought to PACU in stable condition Pathology / specimen Other (Rectosigmoid, proximal and distal anastomotic ring) Estimated Blood Loss 150 Surgeon Lanny Boyer MD Surgical Staff Operation Date: 07/08/24 07:30 Case Staff Anesthesiologist: Titi Zambrano RNhistorian dramatic arts: Kisha Garcia
--- NOTE | 2024-07-08 10:05 | SUR.PHASEI ---
pt received from OR in recovery bay 1. pt asleep but responds to voice, breathing unlabored on 6l nc. v/s stable. pt dressing to abd cdi. report received from Guero YANG and Dr. Zambrano.
[2024-07-08] MEDS: RINGERS LACTATED 1000 ML 1,000 ML 50 ML IV (10:40)
[2024-07-08] MEDS: Morphine Sulfate PF 1 MG/ML PCA VIAL 30 ML 30 MG IV (10:42)
--- NOTE | 2024-07-08 12:05 | SUR.PHASEII ---
pt asleep but responds to voice, breathing unlabored on 2l nc. v/s stable. pt dressing to abd cdi, abd binder in place. report called to Liban YANG. pt will be transferred at this time.
[2024-07-08] MEDS: CEFOXITIN 2 GM in SODIUM CHLORIDE 0.9% (Popper) 50 ML IV ×2 (13:53→22:00)
[2024-07-08] MEDS: ACETAMINOPHEN IVPB 1,000 MG/100 ML VIAL 250 MG IV ×2 (16:06→21:29)
--- NOTE | 2024-07-08 17:08 | PD.ANESPROG ---
Documentation for date of: 07/08/24 ANESTHESIA NOTE: Patient had GETA for ex lap LAR this morning. She did well intra-op and in PACU. OGT was placed intra-op and removed at the end under GETA with minimal output. She received about 1500 cc LR intra-op, UOP 100 cc, EBL 150 cc. Titi Zambrano MD Anesthesia Progress Note Progress Note Most recent Vital Signs: Last Vital Signs Temp 97.7 F 07/08/24 16:00 Pulse 73 07/08/24 16:00 Resp 18 07/08/24 16:00 BP 135/71 H 07/08/24 16:00 Pulse Ox 97 07/08/24 16:00 O2 Del Method Room Air 07/08/24 16:00 O2 Flow Rate 1 07/08/24 13:05
[2024-07-08] MEDS: GABAPENTIN 300 MG CAPSULE PO (21:30)
[2024-07-09] VITALS (9 sets, daily range): BP systolic 119–153; BP diastolic 60–80; PULSE 65–86; RESP 16–96; TEMP 36.2–36.9; O2SAT 93–98
[2024-07-09] MEDS: ACETAMINOPHEN IVPB 1,000 MG/100 ML VIAL 250 MG IV ×2 (04:44→09:31)
[2024-07-09] MEDS: HEPARIN SOD INJ 5000 UNIT/ML VIAL SC ×3 (05:33→21:02)
[2024-07-09] MEDS: CEFOXITIN 2 GM in SODIUM CHLORIDE 0.9% (Popper) 50 ML IV (05:33)
[2024-07-09 07:00] LABS: Basophils % (Auto) 0 % (0-2.5); Eosinophils % (Auto) 0 % (0-10); Hematocrit 35.3 % (36.0-46.0); Hemoglobin 11.8 g/dL (12.0-16.0); Immature Granulocytes % (Auto) 0 % (0-0); Immature Granulocytes Auto 0.03 Thou/mm3 (0.00-0.00); Lymphocytes # (Auto) 1.8 Thou/mm3 (1.0-4.8); Lymphocytes % (Auto) 15 % (10-50); Mean Corpuscular HGB Conc 33.4 g/dl (31.0-37.0); Mean Corpuscular Hemoglobin 31.5 pg (25.0-35.0); Mean Corpuscular Volume 94 fL (80-100); Monocytes # (Auto) 1.1 Thou/mm3 (0.0-0.8); Monocytes % (Auto) 9 % (0-12); Neutrophils # (Auto) 9.3 Thou/mm3 (1.8-7.7); Neutrophils % (Auto) 76 % (37-80); Nucleated Red Blood Cell % 0 /100 WBC (0); Platelet Count 250 Thou/mm3 (140-440); RDW Standard Deviation 46.6 fL (36.4-46.3); Red Blood Count 3.75 Miln/mm3 (4.00-5.20); White Blood Count 12.2 Thou/mm3 (3.6-11.0)
[2024-07-09 07:20] LABS: Anion Gap 9 (7-16); BUN/Creatinine Ratio 11 Ratio (12-20); Blood Urea Nitrogen 11 mg/dL (9-23); Carbon Dioxide 25.5 mMol/L (20.0-31.0); Chloride 106 mMol/L (98-107); Estimated Creatinine Clearance 65.3 mL/min (>60); Glucose 128 mg/dL (74-106); Osmolality,Calculated 280 (275-295); Phosphorous 3.5 mg/dL (2.4-5.1); Sodium 140 mMol/L (136-145); eGFR > 60 See Note
[2024-07-09] MEDS: GABAPENTIN 300 MG CAPSULE PO ×2 (08:01→21:02)
--- NOTE | 2024-07-09 11:51 | PC.SS ---
SS met with patient regarding her d/c plan.? Pt is alert/oriented.? Pt was admitted for [place] [id number].? Pt confirmed demographic and contact information is correct on facesheet.? Pt resides with son, dtr in law, and grandkids.? Pt ambulates independently without assistance or DME.? Pt is ok with all ADLs.? Pt named her dtr, Rachel Peralta, phone# [phone] medical decision maker if she is unable.? SS attempted to contact pt registration to update patient's emergency contact information but they did not answer.? Patient?s choice is to return home upon d/c.? Pt does not have an advance directive, SS offered, and pt declined.? Pt states not diabetic and is not on dialysis.? Pt state she followed up with PCP one month ago. D/C plan:? Return home Next of Kin:? Rachel Peralta dtr, phone# [phone] PCP:? Dr. Little Stanton Address:? Correct on facesheet
--- NOTE | 2024-07-09 13:00 | PD.SURPROG ---
Documented by User: Chandrika Acuna 07/09/24 13:35 Documentation for date of: 07/09/24 Subjective Subjective Brief History: 64 year old female with rectal adenocarcinoma presenting 1 day postop. Patient states she is feeling well and is not experiencing any pain. She used her DOLL WIG MAKER ROOTED HAIR once yesterday around 4 pm. She states that she has been consuming water and clear liquids since yesterday. She has been tolerating this well and denies any nausea or vomiting. Her vazquez catheter was removed yesterday, but she has not gone to urinate since then. The interview was concluded when patient was escorted to the bathroom. She denied any dizziness upon walking. Patient states she was able to urinate with no issues and it was clear in color. She denies having a bowel movement or passing flatus. Exam Vital Signs Temp Pulse Resp BP Pulse Ox O2 Del Method O2 Flow Rate 97.3 F 81 16 153/80 H 98 Nasal Cannula 1 07/09/24 11:32 07/09/24 11:58 07/09/24 11:58 07/09/24 11:32 07/09/24 11:58 07/09/24 11:32 07/09/24 11:58 Constitutional Constitutional: no acute distress Routine Respiratory Exam Respiratory: Present no resp distress; Absent accessory muscle use Routine Abdominal Exam Abdominal: Present soft; Absent distended or guarding Results Results: Laboratory Laboratory results: results reviewed Assessment & Plan Diagnosis (1) Rectal adenocarcinoma: Status: Acute Assessment Additional comments: 64 year old female with rectal adenocarcinoma presenting one day postop. Patient is healing well and pain is well controlled. She has not had a bowel movement or passed flatus since the surgery and is going to continue on a liquid diet. She was able to ambulate to the bathroom this afternoon. Plan Remove DOLL WIG MAKER ROOTED HAIR and start on oral percocet PRN and continue IV toradol PRN. Continue clear liquid diet. Patient will attempt to walk 5 laps around her room today. Procedures Procedures Exploratory laparotomy, resection of rectosigmoid, colorectal anastomosis Documented by User: Lanny Boyer MD 07/09/24 13:35 Subjective Subjective Brief History: 64 year old female with rectal adenocarcinoma presenting 1 day postop. Patient states she is feeling well and is not experiencing any pain. She used her DOLL WIG MAKER ROOTED HAIR once yesterday around 4 pm. She states that she has been consuming water and clear liquids since yesterday. She has been tolerating this well and denies any nausea or vomiting. Her vazquez catheter was removed this am, Patient states she was able to urinate with no issues and it was clear in color. The interview was concluded when patient was escorted to the bathroom. She denied any dizziness upon walking. She denies having a bowel movement or passing flatus. Exam Vital Signs Temp Pulse Resp BP Pulse Ox O2 Del Method O2 Flow Rate 97.3 F 81 16 153/80 H 98 Nasal Cannula 1 07/09/24 11:32 07/09/24 11:58 07/09/24 11:58 07/09/24 11:32 07/09/24 11:58 07/09/24 11:32 07/09/24 11:58 Assessment & Plan Diagnosis (1) Rectal adenocarcinoma: Status: Acute Plan Remove DOLL WIG MAKER ROOTED HAIR and start on oral percocet PRN and continue IV toradol PRN. Continue clear liquid diet. Patient will attempt to walk 5 laps today.
[2024-07-09] MEDS: RINGERS LACTATED 1000 ML 1,000 ML 50 ML IV (13:13)
[2024-07-09] MEDS: HYDROcodone/APAP 5/325 TABLET 1 TAB PO (17:15)
[2024-07-10] VITALS (7 sets, daily range): BP systolic 118–144; BP diastolic 64–77; PULSE 73–90; RESP 17–94; TEMP 36.3–37.2; O2SAT 93–95
[2024-07-10 05:56] LABS: Basophils # (Auto) 0.1 Thou/mm3 (0.0-0.2); Basophils % (Auto) 1 % (0-2.5); Eosinophils # (Auto) 0.1 Thou/mm3 (0.0-0.5); Eosinophils % (Auto) 1 % (0-10); Hematocrit 33.6 % (36.0-46.0); Hemoglobin 11.1 g/dL (12.0-16.0); Immature Granulocytes % (Auto) 0 % (0-0); Immature Granulocytes Auto 0.02 Thou/mm3 (0.00-0.00); Lymphocytes # (Auto) 3.6 Thou/mm3 (1.0-4.8); Lymphocytes % (Auto) 35 % (10-50); Mean Corpuscular Hemoglobin 31.6 pg (25.0-35.0); Mean Corpuscular Volume 96 fL (80-100); Monocytes # (Auto) 0.8 Thou/mm3 (0.0-0.8); Monocytes % (Auto) 8 % (0-12); Neutrophils # (Auto) 5.7 Thou/mm3 (1.8-7.7); Neutrophils % (Auto) 56 % (37-80); Nucleated Red Blood Cell % 0 /100 WBC (0); Platelet Count 221 Thou/mm3 (140-440); RDW Standard Deviation 47.8 fL (36.4-46.3); Red Blood Count 3.51 Miln/mm3 (4.00-5.20); White Blood Count 10.3 Thou/mm3 (3.6-11.0)
[2024-07-10] MEDS: HYDROcodone/APAP 5/325 TABLET 1 TAB PO (06:17)
[2024-07-10] MEDS: HEPARIN SOD INJ 5000 UNIT/ML VIAL SC ×3 (06:17→21:47)
[2024-07-10 06:19] LABS: Anion Gap 8 (7-16); BUN/Creatinine Ratio 17 Ratio (12-20); Blood Urea Nitrogen 10 mg/dL (9-23); Calcium 8.4 mg/dL (8.3-10.6); Carbon Dioxide 27.9 mMol/L (20.0-31.0); Chloride 107 mMol/L (98-107); Creatinine (Component) 0.6 mg/dL (0.6-1.3); Estimated Creatinine Clearance 108.9 mL/min (>60); Glucose 103 mg/dL (74-106); Magnesium 1.9 mg/dL (1.6-2.6); Osmolality,Calculated 283 (275-295); Phosphorous 2.1 mg/dL (2.4-5.1); Potassium 3.9 mMol/L (3.4-5.1); Sodium 143 mMol/L (136-145); eGFR > 60 See Note
[2024-07-10] MEDS: GABAPENTIN 300 MG CAPSULE PO ×2 (08:11→21:45)
[2024-07-10] MEDS: SOD PHOS ADDITIVE 30 MMOL in SODIUM CHLORIDE 0.9% 500 ML 500 ML 62.5 MMOL IV (08:12)
--- NOTE | 2024-07-10 10:36 | ESPR_ITS ---
Documentation for date of: 07/10/24 Subjective Subjective Brief History: 64 year old female with rectal adenocarcinoma presenting 1 day postop. Patient states she is feeling well and is not experiencing any pain. She used her BEAM CARRIER HAULER PUSHER once yesterday around 4 pm. She states that she has been consuming water and clear liquids since yesterday. She has been tolerating this well and denies any nausea or vomiting. Her vazquez catheter was removed this am, Patient states she was able to urinate with no issues and it was clear in color. The interview was concluded when patient was escorted to the bathroom. She denied any dizziness upon walking. She denies having a bowel movement or passing flatus. Narrative: Pain well-controlled on p.o. meds, no nausea, tolerating full liquid and has passed gas, vitals and labs remaining normal aside from low Phos Exam Vital Signs Temp Pulse Resp BP Pulse Ox O2 Del Method O2 Flow Rate 97.9 F 80 18 143/75 H 95 Room Air 1 07/10/24 07:58 07/10/24 07:58 07/10/24 07:58 07/10/24 07:58 07/10/24 07:58 07/10/24 07:58 07/09/24 20:00 Constitutional Constitutional: no acute distress Routine Respiratory Exam Respiratory: Present no resp distress Routine Abdominal Exam Abdominal: Present soft and wound (Midline incision with zuleima intact, no erythema, no fluctuance or drainage); Absent tenderness or distended Results Results: Laboratory Laboratory results: results reviewed Assessment & Plan Plan 64F with rectosigmoid adenocarcinoma diagnosed on colonoscopy, now status post rectosigmoid resection with colorectal anastomosis 07/08, gradually recovering Advance to bland diet Continue ambulation/incentive spirometry Awaiting return of bowel function Procedures Procedures Exploratory laparotomy, resection of rectosigmoid, colorectal anastomosis
--- NOTE | 2024-07-10 22:02 | PC.NURSE ---
Patient refusing IV at this time. She states that she will be discharged tomorrow.
[2024-07-11] VITALS: BP 155/76; PULSE 85; RESP 16; TEMP 37.3; O2SAT 96
[2024-07-11 03:06] VITALS: PULSE 84; RESP 16; RESP 95
[2024-07-11 04:00] VITALS: BP 146/69; PULSE 87; RESP 20; TEMP 36.8; O2SAT 93
[2024-07-11 05:48] LABS: Basophils % (Auto) 1 % (0-2.5); Eosinophils # (Auto) 0.1 Thou/mm3 (0.0-0.5); Eosinophils % (Auto) 1 % (0-10); Immature Granulocytes % (Auto) 0 % (0-0); Immature Granulocytes Auto 0.02 Thou/mm3 (0.00-0.00); Lymphocytes # (Auto) 2.8 Thou/mm3 (1.0-4.8); Lymphocytes % (Auto) 37 % (10-50); Mean Corpuscular HGB Conc 33.3 g/dl (31.0-37.0); Mean Corpuscular Hemoglobin 31.7 pg (25.0-35.0); Mean Corpuscular Volume 95 fL (80-100); Monocytes # (Auto) 0.8 Thou/mm3 (0.0-0.8); Monocytes % (Auto) 10 % (0-12); Neutrophils # (Auto) 3.9 Thou/mm3 (1.8-7.7); Neutrophils % (Auto) 51 % (37-80); Nucleated Red Blood Cell % 0 /100 WBC (0); Platelet Count 219 Thou/mm3 (140-440); RDW Standard Deviation 45.5 fL (36.4-46.3); Red Blood Count 3.47 Miln/mm3 (4.00-5.20); White Blood Count 7.7 Thou/mm3 (3.6-11.0)
[2024-07-11] MEDS: HEPARIN SOD INJ 5000 UNIT/ML VIAL SC (05:59)
[2024-07-11 06:05] LABS: Anion Gap 10 (7-16); BUN/Creatinine Ratio 13 Ratio (12-20); Blood Urea Nitrogen 8 mg/dL (9-23); Calcium 8.5 mg/dL (8.3-10.6); Carbon Dioxide 26.4 mMol/L (20.0-31.0); Chloride 105 mMol/L (98-107); Creatinine (Component) 0.6 mg/dL (0.6-1.3); Estimated Creatinine Clearance 108.9 mL/min (>60); Glucose 105 mg/dL (74-106); Magnesium 1.8 mg/dL (1.6-2.6); Osmolality,Calculated 279 (275-295); Potassium 3.5 mMol/L (3.4-5.1); Sodium 141 mMol/L (136-145); eGFR > 60 See Note
[2024-07-11 07:25] VITALS: PULSE 82; RESP 18; RESP 97
[2024-07-11 08:00] VITALS: BP 146/71; PULSE 77; RESP 17; TEMP 36.8; O2SAT 92
[2024-07-11] MEDS: GABAPENTIN 300 MG CAPSULE PO (08:01)
--- NOTE | 2024-07-11 10:16 | PD.SURPROG ---
Documentation for date of: 07/11/24 Subjective Subjective Brief History: 64 year old female with rectal adenocarcinoma presenting 1 day postop. Patient states she is feeling well and is not experiencing any pain. She used her DIRECTOR OF PRIMARY CARE once yesterday around 4 pm. She states that she has been consuming water and clear liquids since yesterday. She has been tolerating this well and denies any nausea or vomiting. Her vazquez catheter was removed this am, Patient states she was able to urinate with no issues and it was clear in color. The interview was concluded when patient was escorted to the bathroom. She denied any dizziness upon walking. She denies having a bowel movement or passing flatus. Narrative: Pain controlled with PO meds, tolerating regular diet and had a BM yesterday, no nausea, no fever, labs remaining normal Exam Vital Signs Temp Pulse Resp BP Pulse Ox O2 Del Method O2 Flow Rate 98.3 F 77 17 146/71 H 92 L Room Air 1 07/11/24 08:00 07/11/24 08:00 07/11/24 08:00 07/11/24 08:00 07/11/24 08:00 07/11/24 08:00 07/11/24 04:00 Constitutional Constitutional: no acute distress Routine Respiratory Exam Respiratory: Present no resp distress Routine Abdominal Exam Abdominal: Present soft and wound (midline wound with zuleima c/d/i, no erythema, no fluctuance or tenderness); Absent tenderness or distended Results Results: Laboratory Laboratory results: results reviewed Assessment & Plan Plan 64F with rectosigmoid adenocarcinoma diagnosed on colonoscopy, now status post rectosigmoid resection with colorectal anastomosis 07/08, recovering well overall DC plan for today Procedures Procedures Exploratory laparotomy, resection of rectosigmoid, colorectal anastomosis
--- NOTE | 2024-07-11 10:18 | PD.SURDS ---
Planned Discharge Date 07/11/24 DS: Providers Provider Date of admission: 07/08/24 05:40 Primary care physician: Little Stanton PA-C Admitting Provider: Lanny Boyer MD Attending Provider on Admission: Thomas Acunaudeerickson Consults: 07/08/24 12:17 [facility] Referral - Transportation Routine Comment: Positive screening for transportation needs. Attending Provider on DC: Lanny Boyer MD Discharging Provider: Lanny Boyer MD Diagnosis Discharge Diagnosis (1) Rectal adenocarcinoma: Status: Acute Problem List Completed Was Problem List Reviewed/Reconciled?: Yes Hospital Course Pt presented 07/08/24 for planned rectosigmoid resection which proceeded without complication. She has recovered well with normal vitals and labs, return of bowel function and pain controlled, now appropriate for discharge home Exam Vital Signs Temp Pulse Resp BP Pulse Ox O2 Del Method O2 Flow Rate 98.3 F 77 17 146/71 H 92 L Room Air 1 07/11/24 08:00 07/11/24 08:00 07/11/24 08:00 07/11/24 08:00 07/11/24 08:00 07/11/24 08:00 07/11/24 04:00 Constitutional Constitutional: no acute distress Routine Respiratory Exam Respiratory: Present no resp distress Routine Abdominal Exam Abdominal: Present soft; Absent tenderness or distended Discharge Plan Plan Patient Disposition: HOME (Self Care) Prescriptions/Referrals Prescriptions/Med Rec: New oxycodone-acetaminophen [Percocet] 5-325 mg tablet 1 tab PO Q6H MDD 6 tabs PRN (Reason: pain) Qty: 30 0RF docusate sodium [Colace] 100 mg capsule 100 mg PO QDAY Qty: 30 0RF Referrals: Little Stanton PA-C [Primary Care Provider] - Lanny Boyer MD [Physician] - (You will receive a phone call to confirm a follow-up appt with me in 1-2 weeks) Patient/Caregiver Discharge Instructions Other Discharge Activity Instructions:: Avoid lifting objects >10lbs for 6 weeks You may shower, pat incision dry afterward Avoid bathing or swimming for 2 weeks If you develop worsening pain, nausea/vomiting, fever or redness at incision please call the office if during business hours or seek care in ER You may take ibuprofen as needed inbetween doses of percocet for pain control Education Materials: Bowel Surg Recovery, Having Open Colon Surgery, Col[facility] Surg [facility] Home Print Language: Sami Stand Alone Forms: Thelma Award Info., Patient Portal Info Letter Discharge Order Discharge Orders: Discharge (Routine); Ordered 07/11/24 Ordered By: Lanny Boyer Results Results: Laboratory Laboratory results: results reviewed Procedures Procedure Date 07/08/24 Procedures Exploratory laparotomy, resection of rectosigmoid, colorectal anastomosis
--- NOTE | 2024-07-11 11:31 | PD.ANESPROG ---
Documentation for date of: 07/11/24 POST ANESTHESIA NOTE: Patient had GETA for ex lap LAR on 07/08/24. I just saw her brierfly in 350 and she was alert, seated up in chair in her clothes, NAD, denied any problems from anesthesia. Titi Zambrano MD Anesthesia Progress Note Progress Note Most recent Vital Signs: Last Vital Signs Temp 98.3 F 07/11/24 08:00 Pulse 77 07/11/24 08:00 Resp 17 07/11/24 08:00 BP 146/71 H 07/11/24 08:00 Pulse Ox 92 L 07/11/24 08:00 O2 Del Method Room Air 07/11/24 08:00 O2 Flow Rate 1 07/11/24 04:00
== END 2024-07-11 11:45 | disposition home or self-care (01) | DRG 331 ==
LOC: S2W1 09:37 → S3NX 12:13
PROVIDERS: Anesthesiology; Admitting Provider Surgery; PCP Physician Assistant; Visit Provider Surgery
PROC: (CPT 49000; principal; 2024-07-08 07:30)
DX: C19 Malignant neoplasm of rectosigmoid junction (principal); I71.40 Abdominal aortic aneurysm, without rupture, unspecified
CPT/HCPCS: 36415; 80048; 80053; 83735; 84100; 85025; 85610; 85730; 93005; 94664; A4217; A4649; J0131; J0694; J1100; J1643; J2270; J2371; J2405; J2704; J2710; J3010; J3490; J7040; J7050; J7120; A9270; J1596; J1920

== ENCOUNTER 2024-07-18 09:59 | Outpatient (AMB) | payer OTHER, SELFPAY ==
--- NOTE | 2024-07-18 10:08 | GSCOFFNT_ITS ---
Vital Signs - [facility] 07/18/24 10:09 Height 1.6 m Height Method Stated Weight 95.963 kg Weight Measurement Method Standing Scale BMI 37.5 BP 121/77 Blood Pressure Source Automatic Cuff Blood Pressure Location Left Upper Arm Position Sitting Respiration 18 Pulse 84 Pulse Source Monitor Temp 97.5 F Temp Source Temporal Artery Scan Pulse Oximetry (%) 95 Oxygen Delivery Method Room Air Med/Allergies Allergies & Medications Allergies No Known Drug Allergies Allergy (Verified 07/18/24 10:10) Medication Reconciliation docusate sodium 100 mg capsule (Colace) 100 mg PO QDAY #30 caps 07/11/24 [Rx Confirmed 07/18/24] oxycodone-acetaminophen 5 mg-325 mg tablet (Percocet) 1 tab PO Q6H PRN pain #30 tabs 07/11/24 [Rx Confirmed 07/18/24] MA Intake Visit Data Collection New Patient or Established: Established Patient (seen at [facility] within 3 years) Seen by Clinical Staff ONLY (RN/MA): No Reason for Visit:: FOLLOW UP Pain Present Currently: No Clinical Pharmacist Required: No PCP or OBGYN visit in last 3 months: Yes Hx Now: No Do You Feel Safe at Home: Yes Authorities Contacted: N/A Smoking Status Smoking Status: Never smoker Immunization / Flu Flu Vaccine in the Last 12 Months: No Flu Vaccine Exclusion Criteria: No Exclusion Criteria Past Medical History Past Medical History NEUROLOGIC: Negative Neurological Disorders or Seizures CARDIAC: Negative Cardiac Disorders or Congestive Heart Failure RESPIRATORY: Negative Chronic Obstructive Pulmonary Disease (COPD) GASTROINTESTINAL: Positive Gastrointestinal Disorders, Colorectal Cancer and Obesity; Negative Hepatitis GENITOURINARY: Negative Genitourinary Disorders or Renal Disease REPRODUCTIVE: Positive Previous Pregnancies ENDOCRINE: Negative Endocrine Disorders, Diabetes Mellitus Type 1 or Diabetes Mellitus Type 2 HEMATOLOGIC: Negative Blood Disorders PSYCHO/SOCIAL: Negative Depression or Anxiety OTHER HISTORY: Positive Cancer and Colorectal Cancer; Negative Hospitalization, Shingles, Blood Transfusions, Anesthesia Reactions, Chicken Pox, Measles or Mumps Family History FAMILY HISTORY: Negative Family Psychiatric Problems, Family Respiratory Disorders, Family Cardiac Disorders, Family Gastrointestinal Problems, Family Cancer, Family Surgery or Family Anesthesia Reaction Surgical History SURGICAL: Positive Tubal Ligation and Section Social History SMOKING STATUS: Smoking status: Never smoker SECOND HAND EXPOSURE: second hand exposure: No ALCOHOL: Alcohol Intake: Never HOUSING: Housing: House LIVES WITH: Lives With: Family HPI HPI Narrative 64F found to have rectal CA on colonoscopy now s/p LAR 07/08/24 here for planned follow up. Pt reports feeling well overall; she has no pain, is eating well and having regular BMs. She denies any blood in stool ROS Review of Systems Systems Reviewed: All systems reviewed, normal except as documented Objective/Exam General General Appearance: alert, cooperative and well groomed Resp Respiratory exam: Absent respiratory distress Abdominal Abdominal exam: Present soft and scar (midline incision c/d/i with no erythema, no fluctuance or tenderness; zuleima removed); Absent distention or tenderness Results Pathology report reviewed and discussed with pt Assessment & Plan Diagnosis / Problem List (1) Rectal adenocarcinoma: Status: Acute Assessment & Plan: 64F with rectosigmoid adenoCA s/p LAR 07/08/24, recovering well. I conferred [facility] and we agreed that adjuvant chemotherapy is warranted due to lymphadenopathy on preoperative imaging combined with suboptimal surgical lymphadenectomy. She recommends initiating chemotherapy 3 weeks after original surgery. I explained benefits/risks of port placement including infection and pneumothorax; pt expressed understanding and agrees to proceed Plan: Chemoport insertion Wed 07/27 CTC will reach out to pt to initiate chemotherapy Office Procedures GNS Level of Care Nursing/Assessment Patient Status: Established Patient Nursing Assessment/Reassesment: Medication Reconciliation, Update PMH in EMR and Vital Signs Coordination of Care: Complex Care and Chronic Disease 1-5, Consent,records obtained, informed consent, Education Simp Pt/Fam, Results/Orders obtained and Staff clarify orders Established Patient Charge Established Patient Point Assignment: 90 Established Patient Point Charge: EP Level 3 (80-115) Patient Portal Questionaires Social History Living Situation History Housing: House Housing Other:: Pt lives with family Tobacco History Smoking Status: Never smoker Second Hand Smoke Exposure: No Alcohol History Alcohol Intake: Never Domestic Abuse History Do You Feel Safe at Home: Yes Review of Systems Report any current symptoms Only answer those that you have currently: Past Medical History Past Medical History Have you ever been diagnosed with any of the following: Neurological Problems Seizures: No Cardiology Problems Congestive Heart Failure: No Respiratory Problems Chronic Obstructive Pulmonary Disease (COPD): No Stomache/Intestinal Problems Hepatitis: No Colorectal Cancer: Yes Obesity: Yes Genital/Urinary Problems Renal Disease: No Reproductive Problems Previous Pregnancies: Yes Endocrine Problems Diabetes Mellitus Type 1: No Diabetes Mellitus Type 2: No Psychologic Problems Depression: No Anxiety: No Other Problems Hospitalization: No Shingles: No Blood Transfusions: No Anesthesia Reactions: No Chicken Pox: No Measles: No Mumps: No Cancer: Yes
[2024-07-18 10:09] VITALS: BP 121/77; PULSE 84; RESP 18; TEMP 36.4; O2SAT 95; BMI 37.5
== END 2024-07-18 10:20 | disposition home or self-care (01) ==
LOC: HODSRG 09:59
PROVIDERS: PCP Physician Assistant; Referring Provider Physician Assistant; Supervising Provider Surgery; Visit Provider Surgery
DX: Z48.815 Encounter for surgical aftercare following surgery on the digestive system (principal); C20 Malignant neoplasm of rectum
CPT/HCPCS: 99213; G0463

== ENCOUNTER 2024-07-27 07:05 | Day surgery (SDC) | payer OTHER, SELFPAY ==
[2024-07-25 10:38] VITALS: BMI 36.7
[2024-07-25 11:39] LABS: Basophils # (Auto) 0.1 Thou/mm3 (0.0-0.2); Basophils % (Auto) 1 % (0-2.5); Eosinophils # (Auto) 0.1 Thou/mm3 (0.0-0.5); Eosinophils % (Auto) 2 % (0-10); Hematocrit 39.5 % (36.0-46.0); Hemoglobin 13.3 g/dL (12.0-16.0); Immature Granulocytes % (Auto) 0 % (0-0); Immature Granulocytes Auto 0.02 Thou/mm3 (0.00-0.00); Lymphocytes # (Auto) 2.1 Thou/mm3 (1.0-4.8); Lymphocytes % (Auto) 32 % (10-50); Mean Corpuscular HGB Conc 33.7 g/dl (31.0-37.0); Mean Corpuscular Hemoglobin 31.9 pg (25.0-35.0); Mean Corpuscular Volume 95 fL (80-100); Monocytes # (Auto) 0.5 Thou/mm3 (0.0-0.8); Monocytes % (Auto) 8 % (0-12); Neutrophils # (Auto) 3.8 Thou/mm3 (1.8-7.7); Neutrophils % (Auto) 58 % (37-80); Nucleated Red Blood Cell % 0 /100 WBC (0); Platelet Count 385 Thou/mm3 (140-440); RDW Standard Deviation 45.5 fL (36.4-46.3); Red Blood Count 4.17 Miln/mm3 (4.00-5.20); White Blood Count 6.6 Thou/mm3 (3.6-11.0)
[2024-07-25 11:41] LABS: Partial Thromboplastin Time 23.3 Seconds (22.0-36.0); Prothrombin Time 10.6 Seconds (9.0-12.2)
[2024-07-25 11:44] LABS: Alanine Aminotransferase 46 U/L (10-49); Albumin, Serum 4.5 gm/dL (3.4-4.8); Albumin/Globulin Ratio 1.8 (1.2-2.2); Alkaline Phosphatase 70 U/L (46-116); Anion Gap 7 (7-16); Aspartate Amino Transferase 29 U/L (0-34); BUN/Creatinine Ratio 21 Ratio (12-20); Bilirubin,Total 0.5 mg/dL (0.3-1.2); Blood Urea Nitrogen 15 mg/dL (9-23); Calcium 9.3 mg/dL (8.3-10.6); Calcium (Corrected) 9.3 mg/dL (8.5-10.1); Carbon Dioxide 27.3 mMol/L (20.0-31.0); Chloride 108 mMol/L (98-107); Creatinine (Component) 0.7 mg/dL (0.6-1.3); Estimated Creatinine Clearance 94.2 mL/min (>60); Globulin 2.5 gm/dL (2.3-3.5); Glucose 100 mg/dL (74-106); Osmolality,Calculated 283 (275-295); Sodium 142 mMol/L (136-145); eGFR > 60 See Note
[2024-07-27 07:35] VITALS: BP 135/82; PULSE 69; RESP 14; TEMP 37.1; O2SAT 95; BMI 36.5
[2024-07-27] MEDS: RINGERS LACTATED 1000 ML 1,000 ML 20 ML IV (07:49)
--- NOTE | 2024-07-27 08:13 | XR_ITS ---
Examination: AP chest single view Technique one AP portable supine chest single view Exam date and time: 2024 hrs. Indications: Status post Port-A-Cath insertion Findings: Right internal jugular Port-A-Cath tip right atrium Moderate vascular congestion No pneumothorax Impression: Port-A-Cath satisfactory position
--- NOTE | 2024-07-27 09:50 | PD.SUROPNT ---
Date of Procedure 07/27/24 Pre Op Diagnosis Rectosigmoid adenocarcinoma Post Op Diagnosis Same Procedure Incision of Chemo-Port Findings Chemo-Port via right internal jugular vein under ultrasound guided Procedure Description After discussion of risks and benefits, patient was brought to the operating room, SCDs were placed and MAC anesthesia was induced. She received preoperative antibiotics and was prepped and draped in the usual sterile fashion. After timeout the right internal jugular vein was accessed under ultrasound guidance. A wire was placed through the needle into the SVC and proper positioning was confirmed with x-ray. I then made a pocket on the right upper chest approximately 2 fingerbreadths caudal to the clavicle, approximately 3 cm in transverse dimension. I first marked the area and infiltrated with half percent Marcaine. Anesthesia was confirmed and incision was made with a #15 blade. The tissues were dissected with electrocautery and bluntly to create a pocket that could accommodate the size of the port. I then anesthetized the skin between the port site and the wire insertion site before tunneling the catheter from the port cavity to the wire insertion site, which had been widened with a dermatotomy using an 11 blade. The sheath with dilator was placed over the wire, taking care to always keep hand on the wire and the wire was removed intact. The dilator was removed and the catheter was inserted through the sheath. The sheath was then removed and catheter position was checked on x-ray which was shown to be in good position. The distal end of the catheter was then cut to length and the catheter was attached to the port. The port was aspirated with good blood return and flushed easily. The port was sutured into the pocket using two 2-0 Prolene interrupted sutures and the port pocket was closed in 2 layers with 3-0 Vicryl and 4-0 Monocryl. The port was accessed through the skin and again noted to have good blood return and flushed easily. The dermatotomy at the neck was closed with an interrupted 4-0 Monocryl suture and both incisions were covered with Steri-Strips, gauze and Tegaderm. Patient was awoken and brought to PACU in stable condition Pathology / specimen None Estimated Blood Loss 10 Surgeon Lanny Boyer MD Surgical Staff Operation Date: 07/27/24 09:15 Case Staff Anesthesiologist: Titi Zambrano
[2024-07-27 09:55] VITALS: BP 138/69; PULSE 60; RESP 12; O2SAT 95
--- NOTE | 2024-07-27 09:57 | PD.SURDS ---
Planned Discharge Date 07/27/24 DS: Providers Provider Primary care physician: Little Stanton PA-C Attending Provider on Admission: Lanny Boyer MD Attending Provider on DC: Lanny Boyer MD Discharging Provider: Lanny Boyer MD Diagnosis Discharge Diagnosis (1) Rectal adenocarcinoma: Status: Acute Problem List Completed Was Problem List Reviewed/Reconciled?: Yes Exam Vital Signs Temp Pulse Resp BP Pulse Ox 98.8 F 69 14 135/82 H 95 07/27/24 07:35 07/27/24 07:35 07/27/24 07:35 07/27/24 07:35 07/27/24 07:35 Discharge Plan Plan Patient Disposition: HOME (Self Care) Prescriptions/Referrals Prescriptions/Med Rec: No Action No Known Home Medications Referrals: Little Stanton PA-C [Primary Care Provider] - Lanny Boyer MD [Family Provider] - (You will receive a phone call to confirm a follow-up appointment with me in 2 months. Please feel free to call with any concern or question in the meantime) Patient/Caregiver Discharge Instructions Other Discharge Activity Instructions:: You may shower with the clear dressings in place You may remove the dressings in 2 days, on 07/29 Your incision has Steri-Strips on it which will fall off on its own and do not need to be replaced The Chemo-Port may be used as soon as necessary If you develop redness, drainage, difficulty using the port or the port becomes visible please call the office Education Materials: Vascular Access Port Implantation Print Language: [place] Island[place] Stand Alone Forms: Thelma Award Info., Patient Portal Info Letter Discharge Order Discharge Orders: Discharge (Routine); Ordered 07/27/24 Ordered By: Lanny Boyer Procedures Procedures Incision of Chemo-Port
[2024-07-27 10:05] VITALS: BP 136/74; PULSE 60; RESP 11; O2SAT 97
[2024-07-27 10:15] VITALS: BP 139/69; PULSE 58; RESP 12; O2SAT 97
[2024-07-27 10:22] VITALS: BP 137/76; PULSE 67; RESP 19; TEMP 36.5; O2SAT 95
[2024-07-27 10:30] VITALS: BP 137/73; PULSE 62; RESP 12; TEMP 36.6; O2SAT 97
--- NOTE | 2024-07-27 11:10 | SUR.PHASEII ---
0948: Pt received in [facility] via gurney. Report from Jase YANG and Dr. Zambrano. Pt groggy, but awake. Resp even, unlabored. VS stable. Dressing to right upper chest dry, clean, intact with no swelling, hematoma. Denies pain. 1025: Pt more awake, alert. VS stable. Denies pain. Dressing remains dry, clean, intact with no swelling, hematoma. Sitting up tolerating po fluids with no difficulty swallowing and no n/v. 1042: Pt fully awake, oriented x3. Pt assisted to transport chair. Ambulation steady. Pt and daughter in law stated understanding of discharge instructions. Pt discharged from [facility] in stable condition.
== END 2024-07-27 10:42 | disposition home or self-care (01) ==
PROVIDERS: Anesthesiology; Family Provider Surgery; PCP Physician Assistant; Referring Provider Surgery; Visit Provider Surgery
PROC: (CPT 36561; principal; 2024-07-27 09:00)
DX: C19 Malignant neoplasm of rectosigmoid junction (principal)
CPT/HCPCS: 36561; 36415; 71046; 80053; 85025; 85610; 85730; A4217; A4649; C1788; J0690; J1643; J1644; J2250; J2704; J3010; J3490; J7050; J7120

== ENCOUNTER 2024-08-15 07:24 | Outpatient (RCR) | payer OTHER, SELFPAY ==
--- NOTE | 2024-07-20 14:42 | CTCFLWUP_ITS ---
Patient: MARCIANO JONES : 1960 Page 2 of 2 FOLLOW UP NOTE DATE OF SERVICE: 07/20/2024 NAME: MARCIANO JONES ACCOUNT: [id number] : 1960 AGE: 64 INTERVAL HISTORY: Patient here for follow-up after her surgery. Patient had resection of her rectal cancer. On specimen patient was found to have no lymph node. Patient is doing well. ONCOLOGY HISTORY: DIAGNOSIS: Malignant neoplasm of rectum [ICD10] C20 DATE OF DIAGNOSIS: 05/31/2024 STAGE/TNM: Rectal adenocarcinoma at least stage III as patient have at least 2 lymph nodes which look very suspicious TREATMENT HISTORY: Care?Plan Start?Date Cycle Day Intent Rectal?[place]?trial?FOLFOX?Adjuvant?after?surgery?clear?margins 07/18/2024 1 14 Curative?(adjuvant) HISTORY OF PRESENT ILLNESS: 64-year-old female who works is here to establish care. Patient is having bleeding per rectum in February. Patient was seen at a local hospital and was told to follow-up with the primary care. Patient eventually had a colonoscopy and underwent biopsy which showed rectal adenocarcinoma. Patient denies any other complaints. No bleeding per rectum right now. OTHER MEDICAL HISTORY/CONDITIONS: CH[place] MUMPS TONSILLITIS EAR INFECTIONS C SECTION (1989) TONSILLECTOMY A CHILD TUBAL LIGATION (1999) OVARIAN CYST REMOVAL COLONOSCOPY DR RENDON 05/31/24 FAMILY HISTORY: Father:?DENIES Mother:?DENIES Sibling:?DENIES Children:?DENIES Cancer?History:?COLON?CANCER?05/2024 Patient?denies?family?cancer?history. 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 Calcium 600 + D - As directed 2. Emla - 2.5-2.5 % As directed 3. Garlique - As directed 4. One A Day - As directed 5. Osteo Bi-Flex - As directed Medications Last Reconciled by Marilee Sherwood MA on 07/20/2024 ALLERGIES: No Known Drug Allergies REVIEW OF SYSTEMS: A complete 14-point review of systems was performed and is negative except as noted in interval history. PHYSICAL EXAMINATION: VITAL SIGNS: Temperature?98, B/P?138/84, Oxygen?Saturation?95% ECOG Performance Status: 0 - Asymptomatic and fully active GENERAL APPEARANCE: Appears well, in no apparent distress, appropriately interactive. HEENT: Normocephalic, no temporal wasting, normal conjunctiva, no scleral icterus, normal hearing, lips without lesions, neck normal range of motion. CARDIOVASCULAR: Not assessed. PULMONARY: Normal respiratory effort, no respiratory distress or use of accessory muscles, speaking in full sentences, no tachypnea. EXTREMITIES: No pedal edema or cyanosis. SKIN: Normal skin appearance. NEUROLOGIC: Alert and oriented x4. PSHYCHIATRIC: Appropriate affect, mood normal, behavior normal, intact thought and speech. LABORATORY DATA: I have personally reviewed and interpreted each of the patient?s relevant lab tests, abnormal findings are below: Date 07/11/24 ??GLUCOSE,RANDOM?(mg/dL) 105 ??BLOOD?UREA?NITROGEN?(mg/dL) 8?L ??CREATININE?(mg/dL) 0.60 ??SODIUM?(mmol/L) 141 ??POTASSIUM?(mmol/L) 3.5 ??CHLORIDE?(mmol/L) 105 ??CrCl?(CandG)?(ml/min) 110.14 ??CALCIUM,?SERUM?(mg/dL) 8.5 ASSESSMENT/PLAN: #1 rectal adenocarcinoma Likely stage IIIa tumor Patient have few lymph nodes visible on the MRI Patient's tumor is 15 cm from the anal verge Completed surgery All negative margins but no lymph nodes found on the surgery specimen As there were lymph nodes on the MRI we will proceed with adjuvant chemotherapy Patient cancer is microsatellite stable Port catheter placement Chemo education Chemotherapy can be started after 3 weeks of surgical date CBC CMP Rosalio RETURN TO CLINIC: 6 weeks BILLING AND COMPLIANCE: I reviewed external records from providers outside my specialty as summarized above. I spent a total of 50 minutes on this patient?s care on the day of their visit excluding time spent related to any billed procedures. This time includes time spent with the patient as well as time spent documenting in the medical record, reviewing patients records and tests, obtaining history, placing orders, communicating with other healthcare professionals, counseling the patient, family or caregiver, and/or care coordination for the diagnoses above. Electronically Signed by: Emmett Guido MD T: 2:40 PM CC: PCP: Referring: Augustus Jo This document was completed utilizing speech recognition software. Grammatical errors, random word insertions, pronoun errors, and incomplete sentences are an occasional consequence of this system due to software limitations, ambient noise, and hardware issues. Any formal questions or concerns about the content, text or information contained within the body of this dictation should be directly addressed to the provider for clarification.
[2024-07-29 11:49] LABS: Basophils # (Auto) 0.1 Thou/mm3 (0.0-0.2); Basophils % (Auto) 1 % (0-2.5); Eosinophils # (Auto) 0.2 Thou/mm3 (0.0-0.5); Eosinophils % (Auto) 3 % (0-10); Hematocrit 37.7 % (36.0-46.0); Hemoglobin 12.6 g/dL (12.0-16.0); Immature Granulocytes % (Auto) 0 % (0-0); Immature Granulocytes Auto 0.02 Thou/mm3 (0.00-0.00); Lymphocytes # (Auto) 1.8 Thou/mm3 (1.0-4.8); Lymphocytes % (Auto) 28 % (10-50); Mean Corpuscular HGB Conc 33.4 g/dl (31.0-37.0); Mean Corpuscular Hemoglobin 31.6 pg (25.0-35.0); Mean Corpuscular Volume 95 fL (80-100); Monocytes # (Auto) 0.5 Thou/mm3 (0.0-0.8); Monocytes % (Auto) 7 % (0-12); Neutrophils % (Auto) 61 % (37-80); Nucleated Red Blood Cell % 0 /100 WBC (0); Platelet Count 328 Thou/mm3 (140-440); RDW Standard Deviation 44.9 fL (36.4-46.3); Red Blood Count 3.99 Miln/mm3 (4.00-5.20); White Blood Count 6.5 Thou/mm3 (3.6-11.0)
[2024-07-29 12:13] LABS: Alanine Aminotransferase 31 U/L (10-49); Albumin, Serum 4.2 gm/dL (3.4-4.8); Albumin/Globulin Ratio 1.8 (1.2-2.2); Alkaline Phosphatase 71 U/L (46-116); Anion Gap 11 (7-16); Aspartate Amino Transferase 21 U/L (0-34); BUN/Creatinine Ratio 19 Ratio (12-20); Bilirubin,Total 0.5 mg/dL (0.3-1.2); Blood Urea Nitrogen 13 mg/dL (9-23); Calcium 8.6 mg/dL (8.3-10.6); Calcium (Corrected) 8.6 mg/dL (8.5-10.1); Carbon Dioxide 25.8 mMol/L (20.0-31.0); Chloride 105 mMol/L (98-107); Creatinine (Component) 0.7 mg/dL (0.6-1.3); Globulin 2.3 gm/dL (2.3-3.5); Glucose 91 mg/dL (74-106); Osmolality,Calculated 283 (275-295); Potassium 3.6 mMol/L (3.4-5.1); Sodium 142 mMol/L (136-145); Total Protein 6.5 gm/dL (5.7-8.2); eGFR > 60 See Note
[2024-08-01 09:20] LABS: Misc Send Out* See Sep Rpt
[2024-08-12 11:40] LABS: Basophils # (Auto) 0.1 Thou/mm3 (0.0-0.2); Basophils % (Auto) 1 % (0-2.5); Eosinophils # (Auto) 0.1 Thou/mm3 (0.0-0.5); Eosinophils % (Auto) 3 % (0-10); Hematocrit 35.6 % (36.0-46.0); Hemoglobin 12.2 g/dL (12.0-16.0); Immature Granulocytes % (Auto) 0 % (0-0); Lymphocytes # (Auto) 1.7 Thou/mm3 (1.0-4.8); Lymphocytes % (Auto) 36 % (10-50); Mean Corpuscular HGB Conc 34.3 g/dl (31.0-37.0); Mean Corpuscular Hemoglobin 31.6 pg (25.0-35.0); Mean Corpuscular Volume 92 fL (80-100); Monocytes # (Auto) 0.6 Thou/mm3 (0.0-0.8); Monocytes % (Auto) 12 % (0-12); Neutrophils # (Auto) 2.2 Thou/mm3 (1.8-7.7); Neutrophils % (Auto) 48 % (37-80); Nucleated Red Blood Cell % 0 /100 WBC (0); Platelet Count 208 Thou/mm3 (140-440); RDW Standard Deviation 44.7 fL (36.4-46.3); Red Blood Count 3.86 Miln/mm3 (4.00-5.20); White Blood Count 4.6 Thou/mm3 (3.6-11.0)
[2024-08-12 12:10] LABS: Carcinoembryonic Antigen 1.2 ng/mL (0.0-5.0)
[2024-08-12 12:49] LABS: Alanine Aminotransferase 39 U/L (10-49); Albumin, Serum 4.1 gm/dL (3.4-4.8); Albumin/Globulin Ratio 1.8 (1.2-2.2); Alkaline Phosphatase 78 U/L (46-116); Anion Gap 8 (7-16); Aspartate Amino Transferase 28 U/L (0-34); BUN/Creatinine Ratio 20 Ratio (12-20); Blood Urea Nitrogen 12 mg/dL (9-23); Calcium 9.3 mg/dL (8.3-10.6); Calcium (Corrected) 9.3 mg/dL (8.5-10.1); Carbon Dioxide 24.7 mMol/L (20.0-31.0); Chloride 107 mMol/L (98-107); Creatinine (Component) 0.6 mg/dL (0.6-1.3); Globulin 2.3 gm/dL (2.3-3.5); Glucose 99 mg/dL (74-106); Osmolality,Calculated 279 (275-295); Potassium 3.6 mMol/L (3.4-5.1); Sodium 140 mMol/L (136-145); Total Protein 6.4 gm/dL (5.7-8.2); eGFR > 60 See Note
[2024-08-12 14:14] LABS: Bilirubin,Total 0.5 mg/dL (0.3-1.2)
== END 2024-08-15 23:59 | disposition home or self-care (01) ==
LOC: SCTC 07:24
PROVIDERS: PCP Physician Assistant; Referring Provider Family Medicine; Visit Provider Internal Medicine Hematology & Oncology
DX: Z51.11 Encounter for antineoplastic chemotherapy (principal); C20 Malignant neoplasm of rectum
CPT/HCPCS: 36591; 80053; 82378; 85025; 92046; 96366; 96367; 96368; 96411; 96413; 96415; 96416; 99212; A4216; A4699; J0640; J1100; J1453; J1642; J2405; J2997; J7050; J7060; J9190; J9263; G0463

== ENCOUNTER 2024-09-09 08:26 | Outpatient (RCR) | payer OTHER, SELFPAY ==
[2024-08-26 11:13] LABS: Hemoglobin 12.3 g/dL (12.0-16.0); Red Blood Count 3.91 Miln/mm3 (4.00-5.20)
[2024-08-26 11:14] LABS: Basophils % (Auto) 1 % (0-2.5); Eosinophils % (Auto) 1 % (0-10); Hematocrit 35.9 % (36.0-46.0); Immature Granulocytes % (Auto) 0 % (0-0); Immature Granulocytes Auto 0.01 Thou/mm3 (0.00-0.00); Lymphocytes # (Auto) 1.9 Thou/mm3 (1.0-4.8); Lymphocytes % (Auto) 38 % (10-50); Mean Corpuscular HGB Conc 34.3 g/dl (31.0-37.0); Mean Corpuscular Hemoglobin 31.5 pg (25.0-35.0); Mean Corpuscular Volume 92 fL (80-100); Monocytes # (Auto) 0.5 Thou/mm3 (0.0-0.8); Monocytes % (Auto) 11 % (0-12); Neutrophils # (Auto) 2.5 Thou/mm3 (1.8-7.7); Neutrophils % (Auto) 49 % (37-80); Nucleated Red Blood Cell % 0 /100 WBC (0); Platelet Count 215 Thou/mm3 (140-440); RDW Standard Deviation 43.2 fL (36.4-46.3)
[2024-08-26 11:32] LABS: Carcinoembryonic Antigen 1.5 ng/mL (0.0-5.0)
[2024-08-26 11:34] LABS: Alanine Aminotransferase 41 U/L (10-49); Albumin, Serum 4.1 gm/dL (3.4-4.8); Albumin/Globulin Ratio 1.6 (1.2-2.2); Alkaline Phosphatase 95 U/L (46-116); Anion Gap 10 (7-16); Aspartate Amino Transferase 29 U/L (0-34); BUN/Creatinine Ratio 23 Ratio (12-20); Bilirubin,Total 0.5 mg/dL (0.3-1.2); Blood Urea Nitrogen 16 mg/dL (9-23); Calcium 9.2 mg/dL (8.3-10.6); Calcium (Corrected) 9.2 mg/dL (8.5-10.1); Carbon Dioxide 27.2 mMol/L (20.0-31.0); Chloride 106 mMol/L (98-107); Creatinine (Component) 0.7 mg/dL (0.6-1.3); Globulin 2.5 gm/dL (2.3-3.5); Glucose 101 mg/dL (74-106); Osmolality,Calculated 286 (275-295); Potassium 3.8 mMol/L (3.4-5.1); Sodium 143 mMol/L (136-145); Total Protein 6.6 gm/dL (5.7-8.2); eGFR > 60 See Note
[2024-09-09 11:01] LABS: Basophils % (Auto) 1 % (0-2.5); Eosinophils % (Auto) 0 % (0-10); Hemoglobin 11.9 g/dL (12.0-16.0); Immature Granulocytes % (Auto) 0 % (0-0); Immature Granulocytes Auto 0.02 Thou/mm3 (0.00-0.00); Lymphocytes # (Auto) 1.5 Thou/mm3 (1.0-4.8); Lymphocytes % (Auto) 29 % (10-50); Mean Corpuscular Volume 94 fL (80-100); Monocytes # (Auto) 0.6 Thou/mm3 (0.0-0.8); Monocytes % (Auto) 11 % (0-12); Neutrophils # (Auto) 3.2 Thou/mm3 (1.8-7.7); Neutrophils % (Auto) 59 % (37-80); Nucleated Red Blood Cell % 0 /100 WBC (0); Platelet Count 134 Thou/mm3 (140-440); RDW Standard Deviation 47.1 fL (36.4-46.3); Red Blood Count 3.72 Miln/mm3 (4.00-5.20); White Blood Count 5.4 Thou/mm3 (3.6-11.0)
[2024-09-09 11:21] LABS: Alanine Aminotransferase 38 U/L (10-49); Albumin, Serum 4.1 gm/dL (3.4-4.8); Albumin/Globulin Ratio 1.9 (1.2-2.2); Alkaline Phosphatase 102 U/L (46-116); Anion Gap 10 (7-16); Aspartate Amino Transferase 30 U/L (0-34); BUN/Creatinine Ratio 22 Ratio (12-20); Bilirubin,Total 0.5 mg/dL (0.3-1.2); Blood Urea Nitrogen 13 mg/dL (9-23); Calcium 8.5 mg/dL (8.3-10.6); Calcium (Corrected) 8.5 mg/dL (8.5-10.1); Chloride 112 mMol/L (98-107); Creatinine (Component) 0.6 mg/dL (0.6-1.3); Globulin 2.2 gm/dL (2.3-3.5); Glucose 119 mg/dL (74-106); Osmolality,Calculated 287 (275-295); Potassium 3.4 mMol/L (3.4-5.1); Sodium 144 mMol/L (136-145); Total Protein 6.3 gm/dL (5.7-8.2); eGFR > 60 See Note
[2024-09-09 11:22] LABS: Carcinoembryonic Antigen 1.7 ng/mL (0.0-5.0)
== END 2024-09-14 23:59 | disposition home or self-care (01) ==
LOC: SCTC 08:26
PROVIDERS: PCP Physician Assistant; Referring Provider Physician Assistant; Visit Provider Internal Medicine Hematology & Oncology
DX: Z51.11 Encounter for antineoplastic chemotherapy (principal); C20 Malignant neoplasm of rectum
CPT/HCPCS: 36415; 36591; 80053; 82378; 85025; 96365; 96366; 96367; 96368; 96411; 96413; 96415; 96416; A4216; J0640; J1100; J1453; J1642; J2405; J2997; J7050; J7060; J9190; J9263

== ENCOUNTER 2024-09-10 15:11 | Emergency (ER) | payer OTHER, SELFPAY ==
[2024-09-10 15:12] VITALS: BMI 34.3
--- NOTE | 2024-09-10 15:15 | EKG_ITS ---
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
[2024-09-10 15:28] VITALS: BP 158/100; PULSE 135; RESP 20; TEMP 36.6; O2SAT 91; BMI 34.3
--- NOTE | 2024-09-10 15:33 | PD.EDRME ---
Rapid Medical Screening Exam RME Arrival date/time: 09/10/24 15:11 This is a 64-year-old female that comes into the emergency room with complaints of shortness of breath. Patient states symptoms started yesterday. Patient has a history of Rectal adenocarcinoma. Patient is status post resection. Patient currently undergoing chemo. Patient had chemotherapy done 2 weeks ago. Patient is scheduled to have chemo again on 12 September. Patient denies fever. Patient denies urinary symptoms. Patient gets very short of breath with any exertion. Patient with history of high blood pressure. I have greeted and performed a focused initial assessment of this patient. Initial appropriate labs ordered at this time. A comprehensive ED assessment and evaluation of the patient and analysis of all test and completion of medical decision making process will be conducted by additional ED provider. Chief Complaint: Shortness of Breath/Dyspnea Time Seen by Provider: 09/10/24 15:25 Vital signs: Vital Signs Temperature 97.9 F 09/10/24 15:28 Pulse Rate 135 H 09/10/24 15:28 Respiratory Rate 20 09/10/24 15:28 Blood Pressure 158/100 H 09/10/24 15:28 Pulse Oximetry (%) 91 L 09/10/24 15:28 Oxygen Delivery Method Room Air 09/10/24 15:28
--- NOTE | 2024-09-10 15:45 | XR_ITS ---
Examination: CTA chest with intravenous contrast 2-D reconstructions 3-D reconstructions, vascular Date and time of exam: September 10, 2024 1639 hours INDICATIONS: Chest pain shortness of breath beginning 2 days ago CTDI: vol (mGy) 17.8 DLP: (mGycm) 467 Technique: Multiple axial sections of the thorax have been obtained. 3 mm slice thickness, from below the hemidiaphragms to above the apices of the lungs. Mediastinal and lung density settings have been obtained. 2-D sagittal and coronal reconstructions. 3-D angiographic renderings, 3-D volume renderings, 3D post processing, vascular maximum intensity projections obtained. Contrast administered is 100 cc Isovue 370. Low dose protocols were performed. One or more of the following dose reduction techniques were used; automated exposure control, adjustment of the mA and/or KV according to patient size, use of iterative reconstruction technique. Findings: No thoracic aortic aneurysmal dilatation or dissection Multiple bilateral large pulmonary artery emboli including in the right and left main pulmonary segments as well as upper and lower lobe numerous segmental branches No pulmonary infarction or pneumonia Fatty infiltration throughout the liver Contracted gallbladder No pancreatic or adrenal mass The osseous structures are intact IMPRESSION: Positive for multiple large bilateral pulmonary artery emboli
[2024-09-10 15:55] VITALS: PULSE 131; RESP 18; O2SAT 93
[2024-09-10 16:06] VITALS: PULSE 129
[2024-09-10] MEDS: ASPIRIN 81 MG CHEW 324 MG PO (16:14)
[2024-09-10 16:16] LABS: Lactate (Lactic Acid) 2.5 mMol/L (0.4-2.0)
[2024-09-10 16:33] LABS: Basophils % (Auto) 1 % (0-2.5); Eosinophils % (Auto) 1 % (0-10); Hematocrit 35.3 % (36.0-46.0); Hemoglobin 12.4 g/dL (12.0-16.0); Immature Granulocytes % (Auto) 0 % (0-0); Immature Granulocytes Auto 0.01 Thou/mm3 (0.00-0.00); Lymphocytes # (Auto) 1.2 Thou/mm3 (1.0-4.8); Lymphocytes % (Auto) 26 % (10-50); Mean Corpuscular HGB Conc 35.1 g/dl (31.0-37.0); Mean Corpuscular Hemoglobin 32.3 pg (25.0-35.0); Mean Corpuscular Volume 92 fL (80-100); Monocytes # (Auto) 0.5 Thou/mm3 (0.0-0.8); Monocytes % (Auto) 12 % (0-12); Neutrophils # (Auto) 2.7 Thou/mm3 (1.8-7.7); Neutrophils % (Auto) 60 % (37-80); Nucleated Red Blood Cell % 0 /100 WBC (0); Platelet Count 122 Thou/mm3 (140-440); RDW Standard Deviation 45.6 fL (36.4-46.3); Red Blood Count 3.84 Miln/mm3 (4.00-5.20); White Blood Count 4.5 Thou/mm3 (3.6-11.0)
--- NOTE | 2024-09-10 16:33 | PD.EDSOB ---
ED SOB =RME/HPI General Chief Complaint: Shortness of Breath/Dyspnea Stated Complaint: SOB AND CP SINCE YESTERDAY Time Seen by Provider: 09/10/24 15:25 Arrival date/time: 09/10/24 15:11 RME / HPI RME / HPI Narrative: 09/10/24 15:11 This is a 64-year-old female that comes into the emergency room with complaints of shortness of breath. Patient states symptoms started yesterday. Patient has a history of Rectal adenocarcinoma. Patient is status post resection. Patient currently undergoing chemo. Patient had chemotherapy done 2 weeks ago. Patient is scheduled to have chemo again on 12 September. Patient denies fever. Patient denies urinary symptoms. Patient gets very short of breath with any exertion. Patient with history of high blood pressure. I have greeted and performed a focused initial assessment of this patient. Initial appropriate labs ordered at this time. A comprehensive ED assessment and evaluation of the patient and analysis of all test and completion of medical decision making process will be conducted by additional ED provider. DR. TRUONG MAIN ED EVALUATION 64 year old female with history of rectal adenocarcinoma s/p LAR 07/08/2024, undergoing chemotherapy (last treatment 2 weeks ago) performed here by Dr. Boyer presents to the ED for complaint of substernal chest pain and shortness of breath on exertion today. Reports she has had shortness of breath since her colon surgery performed 2 months ago. However, noted shortness of breath is progressively worse. Accompanied by a mild nonproductive cough. Denies fevers, chills, sweats, Denies nausea, vomiting, diarrhea, constipation. Denies dysuria, urinary frequency and urgency. Related Data Home Medications ?Medication ?Instructions ?Recorded ?Confirmed No Known Home Medications 07/25/24 07/25/24 Allergies Allergy/AdvReac Type Severity Reaction Status Date / Time No Known Drug Allergies Allergy Verified 09/10/24 15:14 Review of Systems Review of Systems Narrative Review of Systems: GEN: No fever, no chills, no weight loss EYES: No discharge, no visual changes, no pain HEENT: No ear pain, no congestion, no sore throat PULM: + shortness of breath, +cough CV: +chest pain, + dyspnea on exertion, no palpitations GI: No nausea, no vomiting, no diarrhea, no pain, no constipation : No frequency, no urgency, no dysuria MUSC/SKEL: No joint pain, no back pain SKIN: No rash NEURO: No weakness, no headache Past Medical History Past Medical History CARDIAC: Positive Hypertension GASTROINTESTINAL: Positive Gastrointestinal Disorders, Colorectal Cancer and Obesity REPRODUCTIVE: Positive Previous Pregnancies OTHER HISTORY: Positive Cancer and Colorectal Cancer Family History FAMILY HISTORY: Negative Family Psychiatric Problems, Family Respiratory Disorders, Family Cardiac Disorders, Family Gastrointestinal Problems, Family Cancer, Family Surgery or Family Anesthesia Reaction Surgical History SURGICAL: Positive Tubal Ligation and Section Social History SMOKING STATUS: Never smoker SECOND HAND EXPOSURE: No ED Exam Narrative Physical exam: GENERAL APPEARANCE: alert and oriented x 4, well-developed, well-nourished, tachypneic HEENT: Normocephalic, atraumatic; pupils equal, round, reactive to light; EOMI; mucous membranes pink, moist; oropharynx clear NECK: Supple LUNGS: Tachypneic, CTABL; no wheezes, no rales, no rhonchi HEART: Tachycardic; normal S1, S2; no murmurs ABDOMEN: non distended; normal BS; soft, no tenderness, no guarding, no rebound; no masses, no organomegaly, no hernia BACK: no CVA tenderness EXTREMITIES: atraumatic; no leg edema or tenderness NEUROLOGIC: awake; alert and oriented x4; cranial nerves II-XII grossly intact; no focal sensory or motor deficits PSYCHIATRIC: appropriate mood and affect SKIN: warm, dry, normal color; no rashes Course Quality Measures none Orders Category Date Time Status CT Screening NOW Care 09/10/24 15:45 Active Mechanical Engineering Manager Q4H START 00 Care 09/10/24 15:32 Active EKG (ED ONLY) *Do not use* NOW Care 09/10/24 15:15 Completed IV [Insert IV] STAT Care 09/10/24 15:[address] angio chest Stat Exams 09/10/24 15:45 Completed EKG (ED Only) Stat Exams 09/10/24 15:15 Draft BNP [B-Type Natriuretic Peptide] Stat Lab 09/10/24 15:58 Completed Blood Culture (Lab) Stat Lab 09/10/24 15:58 Received CBC Stat Lab 09/10/24 15:58 Completed Comprehensive Metabolic Panel Stat Lab 09/10/24 15:58 Completed D-Dimer Stat Lab 09/10/24 15:58 Completed Lactate (Lactic Acid) Stat Lab 09/10/24 15:58 Results Magnesium Stat Lab 09/10/24 15:58 Completed PTT [Partial Thromboplastin Time] Stat Lab 09/10/24 17:29 Completed Procalcitonin Stat Lab 09/10/24 15:58 Completed Troponin I Stat Lab 09/10/24 15:58 Completed Urinalysis, C/S if Indicated Stat Lab 09/10/24 15:32 Ordered Aspirin Chew Med 09/10/24 15:46 Discontinued 324 mg PO X1 ONE Heparin Inj Med 09/10/24 17:00 Once 4,000 unit IV X1 ONE Heparin/D5w 25K 250 ML Ivpb [Heparin in D5w Ivpb] Med 09/10/24 17:00 Pending 25,000 unit in 250 ml IV 18 units/kg/hr Oxygen Delivery NOW RT 09/10/24 15:49 Active Reevaluation(s) Reevaluation #1: We reviewed all the results, analysis, and treatment plans. Patient is amenable to transfer. Time: 17:08 Vital Signs Vital signs: Vital Signs Temperature 97.9 F 09/10/24 15:28 Pulse Rate 135 H 09/10/24 15:28 Respiratory Rate 20 09/10/24 15:28 Blood Pressure 158/100 H 09/10/24 15:28 Pulse Oximetry (%) 91 L 09/10/24 15:28 Oxygen Delivery Method Room Air 09/10/24 15:28 Pulse ox is 91% on room air which is hypoxic. Shortness of Breath / Dyspnea MDM Narrative MDM Narrative:: Guillermina Hudson am scribing for and in the presence of Dr. Truong. Patient data External records reviewed:: [facility] previous records (I reviewed Dr. Boyer's operative report on 07/08/2024 ) Clinical information provided by:: patient Social determinants that could affect healthcare access:: none Patient has the following chronic illnesses:: history of rectal adenocarcinoma s/p LAR 07/08/2024 How is presenting disease/condition affected by chronic disease/condition?: exacerbated by Evaluation data The following diagnostics were reviewed and interpreted by me:: lab results, radiology exam(s) and EKG tracing(s) (EKG @ 15:22 hours. Sinus tachycardia, rate 126, low voltage in lead III, no acute ischemic changes. ) Lab and/or radiology exams considered but not ordered:: None Interpretation Summary: Ordering Physician: Dacia Truong MD Date of Service: 09/10/24 Procedure(s): CT angio chest Accession Number(s): [id number] cc: Slava Hicks MD; Dacia Truong MD~ Examination: CTA chest with intravenous contrast 2-D reconstructions 3-D reconstructions, vascular Date and time of exam: September 10, 2024 1639 hours INDICATIONS: Chest pain shortness of breath beginning 2 days ago CTDI: vol (mGy) 17.8 DLP: (mGycm) 467 Technique: Multiple axial sections of the thorax have been obtained. 3 mm slice thickness, from below the hemidiaphragms to above the apices of the lungs. Mediastinal and lung density settings have been obtained. 2-D sagittal and coronal reconstructions. 3-D angiographic renderings, 3-D volume renderings, 3D post processing, vascular maximum intensity projections obtained. Contrast administered is 100 cc Isovue 370. Low dose protocols were performed. One or more of the following dose reduction techniques were used; automated exposure control, adjustment of the mA and/or KV according to patient size, use of iterative reconstruction technique. Findings: No thoracic aortic aneurysmal dilatation or dissection Multiple bilateral large pulmonary artery emboli including in the right and left main pulmonary segments as well as upper and lower lobe numerous segmental branches No pulmonary infarction or pneumonia Fatty infiltration throughout the liver Contracted gallbladder No pancreatic or adrenal mass The osseous structures are intact IMPRESSION: Positive for multiple large bilateral pulmonary artery emboli Dictated By: Slava Hicks MD Signed By: <Electronically signed by Slava Hicks MD in OV> 09/10/24 1701 Medications / Prescriptions Medications or Prescriptions considered but not ordered:: None Medication administrations:: Medication Administration History Heparin Sodium (Porcine) (Heparin Sod Inj 5000 Unit/Ml Vial 10 Ml) 4,000 unit IV X1 ONE Stop: 09/10/24 17:01 Heparin Sodium/Dextrose (Heparin In D5w Ivpb) 25,000 unit in 250 mls @ 16.329 mls/hr IV .[id number] [facility]; Protocol Stop: 09/24/24 16:59 Discontinued Medications Aspirin (Aspirin 81 Mg Chew) 324 mg PO X1 ONE Stop: 09/10/24 15:47 Last Admin: 09/10/24 16:14 Dose: 324 mg Documented By: DB See above Consultations Consultation(s) initiated? (list below): Yes Consultation #1 (Physician, Specialty, Details): I spoke with [employer] consultant Dr. Jaime. We discussed HPI, PMHx, lab and radiology results. He recommends transferring the patient to [place] for thrombectomy of bilateral pulmonary emboli. Time: 17:05 Consultation #2 (Physician, Specialty, Details): Compounding Scaler Dr. Jaime reports he has spoken with [facility] transfer center and states they have accepted the patient for transfer, ER to ER. Time: 17:14 Consultation #3 (Physician, Specialty, Details): I spoke with Dr. Torres at [facility]. Discussed patients PMHx, HPI, ED course, exam findings, labs, and radiology results. She is requesting an disc and an echocardiogram prior to transfer. However if unable to be performed that is okay. She accepts the patient for transfer. Time: 18:08 Diagnosis Shortness of Breath Differential Diagnosis: acute exacerbation of chronic obstructive airways disease, congestive heart failure and community acquired pneumonia Most likely diagnosis given after review of the tests above:: Bilateral pulmonary emboli Admission Indicated Admission indicated?: not indicated Explain why admission is indicated or not indicated:: Txfer for thrombectomy Admission Request Was there a request for admission?: No Disposition Plan Disposition Plan: Transfer Critical Care Time Critical Care Time Critical Care Time: Yes Total Critical Care Time (min.): 40 Attestation: The high probability of sudden, clinically significant deterioration in the patient's condition required the highest level of my preparedness to intervene urgently. The services I provided to this patient were to treat and/or prevent clinically significant deterioration. Services included the following: chart data review, reviewing nursing notes and/or old charts, documentation time, insolvency consultant collaboration regarding findings and treatment options, medication orders and management, direct patient care, vital sign assessments and ordering, interpreting and reviewing diagnostic studies and lab tests. Aggregate critical care time includes only time during which I was engaged in work directly related to the patient's care, as described above, whether at bedside or elsewhere in the Emergency Department. It did not include time spent performing other reported procedures or the services of residents, students, nurses or physician assistants. Discharge Plan Plan Patient Disposition: [facility] Pt Being Transferred to: [facility] Service Needed for Transfer: Interventional Cardiology Patient condition on transfer: Stable Prescriptions/Referrals Prescriptions/Med Rec: No Action No Known Home Medications Problem List Clinical Impression: Bilateral pulmonary embolism Patient/Caregiver Discharge Instructions Print Language: Georgian Stand Alone Forms: Thelma Award Info., Patient Portal Info Letter
[2024-09-10 16:37] LABS: B-Type Natriuretic Peptide 26 pg/mL (0-100)
[2024-09-10 16:47] LABS: D-Dimer > 3820 ng/mL (<600)
[2024-09-10 16:51] LABS: Alanine Aminotransferase 51 U/L (10-49); Albumin, Serum 4.1 gm/dL (3.4-4.8); Albumin/Globulin Ratio 1.8 (1.2-2.2); Alkaline Phosphatase 111 U/L (46-116); Anion Gap 9 (7-16); Aspartate Amino Transferase 47 U/L (0-34); BUN/Creatinine Ratio 19 Ratio (12-20); Bilirubin,Total 0.4 mg/dL (0.3-1.2); Blood Urea Nitrogen 13 mg/dL (9-23); Calcium 8.7 mg/dL (8.3-10.6); Calcium (Corrected) 8.7 mg/dL (8.5-10.1); Carbon Dioxide 25.1 mMol/L (20.0-31.0); Chloride 108 mMol/L (98-107); Creatinine (Component) 0.7 mg/dL (0.6-1.3); Estimated Creatinine Clearance 90.9 mL/min (>60); Globulin 2.3 gm/dL (2.3-3.5); Glucose 136 mg/dL (74-106); Magnesium 1.9 mg/dL (1.6-2.6); Osmolality,Calculated 285 (275-295); Potassium 3.9 mMol/L (3.4-5.1); Procalcitonin 0.11 ng/ml (0.0-0.49); Sodium 142 mMol/L (136-145); Total Protein 6.4 gm/dL (5.7-8.2); eGFR > 60 See Note
[2024-09-10 16:55] LABS: Troponin I 0.112 ng/mL (0.0-0.045)
--- NOTE | 2024-09-10 17:18 | PC.NURSE ---
[facility] CONTACTED, SPOKE WITH PAVEL. INFO GIVEN. CALL DIRECTED TO RN FOR CLINICAL. SPOKE WITH ANNY. STATES THEY WILL CHECK AVAILABILITY AND CALL US BACK
[2024-09-10 18:03] LABS: Partial Thromboplastin Time 21.4 Seconds (22.0-36.0)
[2024-09-10 18:04] VITALS: BP 153/118; PULSE 129; RESP 18; TEMP 37.2; O2SAT 94
--- NOTE | 2024-09-10 18:13 | PC.NURSE ---
PT ACCEPTED AT [facility] BY DR LUNA. REQUEST HEPARIN DRIP AND FLY PT IF POSSIBLE
[2024-09-10] MEDS: HEPARIN SOD INJ 5000 UNIT/ML VIAL 7250 UNIT IV (18:29)
[2024-09-10] MEDS: Heparin/D5w 25K 250 ML Ivpb 25,000 UNIT/250 ML BAG 16.329 UNIT IV (18:30)
--- NOTE | 2024-09-10 18:30 | PC.NURSE ---
[facility] CONTACTED, STATES PT WAS ACCEPTED AT [facility] THEY ARE WAITING FOR AN ICU BED AT THIS TIME. WILL CALL REACH BACK WHEN BE IS AVAILABLE
[2024-09-10 18:33] VITALS: BP 167/99; PULSE 127
--- NOTE | 2024-09-10 18:48 | PC.NURSE ---
EBER FROM [facility] RETURNED CALL. STATES THEY HAVE A BED AT [facility], BED ICU [address]. ADMITING MD DR MANZANO. NURSE TO NURSE REPORT [phone]
--- NOTE | 2024-09-10 19:11 | PC.NURSE ---
CALLED [facility] AND GAVE REPORT TO JILL QUESADA RN.
[2024-09-10 19:13] LABS: Reflex Lactate? Y
[2024-09-10 19:19] VITALS: BP 167/99; PULSE 124; RESP 18; O2SAT 99
== END 2024-09-10 19:24 | disposition short-term general hospital (02) ==
PROVIDERS: Nurse Practitioner Family; Emergency Provider Emergency Medicine; PCP Nurse Practitioner Primary Care
DX: I26.99 Other pulmonary embolism without acute cor pulmonale (principal); R00.0 Tachycardia, unspecified; I10 Essential (primary) hypertension
CPT/HCPCS: 36415; 71275; 80053; 81001; 83605; 83735; 83880; 84145; 84484; 85025; 85379; 85730; 87040; 93005; 96365; 99291; A4649; J1643; J1644; Q9967; A9270

== ENCOUNTER → 2024-09-22 | Outpatient (CLI) | payer OTHER, SELFPAY ==
--- NOTE | 2024-09-22 15:27 | ECHO_ITS ---
Transthoracic Echo Report Ht (in): 64 Wt (lb): 200 Exam Location: Echo Lab Status: Outpatient Water Valve Repairer: ROYER Michaels^^^^ Indications: Procedure Performed: BP: / HR: MEASUREMENTS (Male / Female) Normal Values 2D ECHO LV Diastolic Diameter PLAX 4.1 cm 4.2 - 5.9 / 3.9 - 5.3 cm LV Systolic Diameter PLAX 2.8 cm IVS Diastolic Thickness 0.8 cm 0.6 - 1.0 / 0.6 - 0.9 cm LVPW Diastolic Thickness 0.8 cm 0.6 - 1.0 / 0.6 - 0.9 cm LV Relative Wall Thickness 0.4 LVOT Diameter 1.6 cm Aortic Root Diameter 2.8 cm LA Systolic Diameter LX 2.4 cm 3.0 - 4.0 / 2.7 - 3.8 cm Ascending Aorta Diameter 2.4 cm DOPPLER AV Peak Velocity 128.5 cm/s AV Peak Gradient 6.6 mmHg AV Mean Gradient 5.0 mmHg AV Velocity Time Integral 21.3 cm LVOT Peak Velocity 85.0 cm/s LVOT Peak Gradient 2.9 mmHg LVOT Velocity Time Integral 15.5 cm AV Area Cont Eq vti 1.5 cm? AV Area Cont Eq pk 1.3 cm? MV Area PHT 3.8 cm? Mitral E Point Velocity 56.3 cm/s Mitral A Point Velocity 104.0 cm/s Mitral E to A Ratio 0.5 LV E' Lateral Velocity 11.2 cm/s Mitral E to LV E' Lateral Ratio 5.0 LV E' Septal Velocity 8.5 cm/s Mitral E to LV E' Septal Ratio 6.6 TR Peak Velocity 232.0 cm/s TR Peak Gradient 21.5 mmHg PV Peak Velocity 113.0 cm/s PV Peak Gradient 5.1 mmHg RVOT Peak Velocity 75.4 cm/s FINDINGS Left Ventricle Normal left ventricular size, wall thickness, systolic function with no obvious regional wall motion abnormalities. There is grade I diastolic dysfunction of the left ventricle (impaired relaxation pattern). The left ventricular ejection fraction is normal, estimated at 60-65%. Right Ventricle The right ventricle is normal in size and systolic function. The estimated right ventricular systolic pressure, 23 mmHg. Left Atrium The left atrium is normal by two-dimensional, color flow and Doppler imaging with no structural abnormalities, no thrombus formation present. Right Atrium The right atrium is normal by two-dimensional imaging, color flow and Doppler imaging with no structural abnormalities, no thrombus formation present. Atrial Septum The interatrial septum appears normal with no evidence of a shunt. Aorta The aorta is normal by two-dimensional, color flow and Doppler interrogation. Mitral Valve Trace to mild mitral regurgitation. Mild mitral annular calcification. Aortic Valve The aortic valve is trileaflet and normal by two-dimensional, color flow and Doppler interrogation. There is no significant aortic valve regurgitation. Tricuspid Valve There is mild tricuspid valve regurgitation. Pulmonic Valve Trivial pulmonic valve regurgitation. Vessels The pulmonary artery appears normal. The inferior vena cava pulmonary and hepatic veins appear normal. Pericardium The pericardium is normal by two-dimensional imaging. There is no significant pericardial effusion. CONCLUSIONS Indication: Rectal malignancy Normal LV size and function with an estimated EF of 60 to 65%. Diastolic dysfunction stage I. Normal RV size and function. Estimated RVSP normal at 20 to 25 mmHg. Trace MR and mild TR. Thomas Coker (Electronically Signed) Final Date: 23 Sep 2024 03:42
--- NOTE | 2024-09-22 15:54 | XR_ITS ---
Examination: Duplex scan of the lower extremity, unilateral left Date and time of exam: September 22, 2024 1601 hours INDICATIONS: Left leg pain beginning 3 weeks ago Technique: Duplex scan of the extremity veins using B-mode/grayscale imaging and Doppler spectral analysis and color flow Attention is directed to internal echogenicity, compression and augmentation involving these veins, color flow assessment, spectral analysis Findings: Positive for nonocclusive thrombus left common femoral proximal left superficial femoral vein IMPRESSION: Positive for nonocclusive thrombus left common femoral proximal left superficial femoral vein
--- NOTE | 2024-09-22 16:11 | XR_ITS ---
Examination: CTA chest with intravenous contrast 2-D reconstructions 3-D reconstructions, vascular Date and time of exam: September 22, 2024, 1640 hours Comparison September 06, 2024 INDICATIONS: Positive for multiple large pulmonary artery emboli on CT chest September 10, 2024, diagnosis malignant neoplasm rectum, intermittent shortness of breath one week CTDI: vol (mGy) 10.8 DLP: (mGycm) 338 Technique: Multiple axial sections of the thorax have been obtained. 3 mm slice thickness, from below the hemidiaphragms to above the apices of the lungs. Mediastinal and lung density settings have been obtained. 2-D sagittal and coronal reconstructions. 3-D angiographic renderings, 3-D volume renderings, 3D post processing, vascular maximum intensity projections obtained. Contrast administered is 100 cc [id number]. Low dose protocols were performed. One or more of the following dose reduction techniques were used; automated exposure control, adjustment of the mA and/or KV according to patient size, use of iterative reconstruction technique. Findings: No thoracic aortic aneurysmal dilatation Multiple large bilateral pulmonary artery emboli again depicted including in bilateral upper and lower lobe pulmonary artery branches, only minimal improvement compared with September 10, 2024 No interval pneumonia or pulmonary infarction Diffuse fatty infiltration throughout the liver On this study subtle wedge-shaped enhancement 20 mm in the lateral right lobe of the liver and 21 mm in the anterior right lobe of the liver Osseous structures intact IMPRESSION: Multiple large bilateral pulmonary artery emboli again depicted bilateral upper and lower lobe pulmonary artery branches, only minimal improvement compared to the September 10, 2024 exam Subtle enhancing liver lesions, recommend MRI abdomen follow up pre and postcontrast to exclude early hepatic metastatic disease
== END | disposition home or self-care (01) ==
PROVIDERS: Referring Provider Internal Medicine Hematology & Oncology; Visit Provider Internal Medicine Hematology & Oncology
DX: I26.99 Other pulmonary embolism without acute cor pulmonale (principal); R91.8 Other nonspecific abnormal finding of lung field; I82.412 Acute embolism and thrombosis of left femoral vein; C20 Malignant neoplasm of rectum; I50.30 Unspecified diastolic (congestive) heart failure
CPT/HCPCS: 71275; 93306; 93971; A4649; Q9967

== ENCOUNTER 2024-10-03 10:19 | Outpatient (AMB) | payer OTHER, SELFPAY ==
[2024-10-03 10:39] VITALS: BP 104/74; PULSE 84; RESP 18; TEMP 36.7; O2SAT 97; BMI 36.9
--- NOTE | 2024-10-03 10:39 | PD.GSCLVISIT ---
Vital Signs - [facility] 10/03/24 10:39 Height 1.63 m Height Method Stated Weight 97.721 kg Weight Measurement Method Standing Scale BMI 36.9 BP 104/74 Blood Pressure Source Automatic Cuff Blood Pressure Location Left Upper Arm Position Sitting Respiration 18 Pulse 84 Pulse Source Monitor Temp 98.1 F Temp Source Temporal Artery Scan Pulse Oximetry (%) 97 Oxygen Delivery Method Room Air Med/Allergies Allergies & Medications Allergies No Known Drug Allergies Allergy (Verified 10/03/24 10:40) Medication Reconciliation No Known Home Medications 07/25/24 [History Confirmed 10/03/24] MA Intake Visit Data Collection New Patient or Established: Established Patient (seen at [facility] within 3 years) Reason for Visit:: POST OP PORT CATH Pain Present Currently: No Pain scale:: 0 Pain Scale Used: Curry[employer] Lab Technician Required: No PCP or OBGYN visit in last 3 months: Yes Smoking Status Smoking Status: Never smoker Immunization / Flu Flu Vaccine in the Last 12 Months: Yes Flu Vaccine Exclusion Criteria: Already Received Past Medical History Past Medical History NEUROLOGIC: Negative Neurological Disorders or Seizures CARDIAC: Positive Hypertension; Negative Cardiac Disorders or Congestive Heart Failure RESPIRATORY: Negative Chronic Obstructive Pulmonary Disease (COPD) or Asthma GASTROINTESTINAL: Positive Gastrointestinal Disorders, Colorectal Cancer and Obesity; Negative Hepatitis GENITOURINARY: Negative Genitourinary Disorders or Renal Disease REPRODUCTIVE: Positive Previous Pregnancies ENDOCRINE: Negative Endocrine Disorders, Diabetes Mellitus Type 1 or Diabetes Mellitus Type 2 HEMATOLOGIC: Negative Blood Disorders or Sickle Cell Disease PSYCHO/SOCIAL: Negative Depression or Anxiety OTHER HISTORY: Positive Cancer and Colorectal Cancer; Negative Hospitalization, Shingles, Blood Transfusions, Anesthesia Reactions, Chicken Pox, Measles or Mumps Family History FAMILY HISTORY: Negative Family Psychiatric Problems, Family Respiratory Disorders, Family Cardiac Disorders, Family Gastrointestinal Problems, Family Cancer, Family Surgery or Family Anesthesia Reaction Surgical History SURGICAL: Positive Tubal Ligation and Section Social History SMOKING STATUS: Smoking status: Never smoker SECOND HAND EXPOSURE: second hand exposure: No ALCOHOL: Alcohol Intake: Never HOUSING: Housing: House LIVES WITH: Lives With: Family HPI HPI Narrative 64F with rectosigmoid adenoCA s/p LAR 07/08/24, followed by chemoport insertion 07/2024 here for planned follow up. A couple weeks ago pt was diagnosed with bilateral PE when she developed dyspnea, she was transferred to [place] for possible thrombectomy but she was advised it was too risky and her symptoms improved with anticoagulation. Otherwise pt feels well, her breathing has improved and she has no abdominal pain, is eating well and having regular BMs ROS Review of Systems Systems Reviewed: All systems reviewed, normal except as documented Objective/Exam General General Appearance: alert, cooperative and well groomed Chest Chest inspection: Present other (port incision c/d/i, no erythema or drainage) Resp Respiratory exam: Absent respiratory distress Assessment & Plan Diagnosis / Problem List (1) Rectal adenocarcinoma: Status: Acute Assessment & Plan: 64F with rectosigmoid adenoCA s/p LAR 07/08/24, followed by chemoport insertion 07/2024, with bilateral PE 09/2024 now on eliquis here for planned follow up. Pt is recovering well overall with no concerns or complaints Plan: Follow up in 6 weeks Office Procedures GNS Level of Care Nursing/Assessment Patient Status: Established Patient Nursing Assessment/Reassesment: Medication Reconciliation, Update PMH in EMR and Vital Signs Coordination of Care: Complex Care/Chronic Disease 5 or more, Education Complex Pt/Fam, Consent,records obtained, informed consent, Results/Orders obtained and Staff clarify orders Established Patient Charge Established Patient Point Assignment: 105 Established Patient Point Charge: EP Level 3 (80-115) Patient Portal Questionaires Social History Living Situation History Housing: House Housing Other:: Pt lives with family Tobacco History Smoking Status: Never smoker Second Hand Smoke Exposure: No Alcohol History Alcohol Intake: Never Review of Systems Report any current symptoms Only answer those that you have currently: Past Medical History Past Medical History Have you ever been diagnosed with any of the following: Neurological Problems Seizures: No Cardiology Problems Congestive Heart Failure: No Hypertension: Yes Respiratory Problems Chronic Obstructive Pulmonary Disease (COPD): No Asthma: No Stomache/Intestinal Problems Hepatitis: No Colorectal Cancer: Yes Obesity: Yes Genital/Urinary Problems Renal Disease: No Reproductive Problems Previous Pregnancies: Yes Endocrine Problems Diabetes Mellitus Type 1: No Diabetes Mellitus Type 2: No Blood Problems Sickle Cell Disease: No Psychologic Problems Depression: No Anxiety: No Other Problems Hospitalization: No Shingles: No Blood Transfusions: No Anesthesia Reactions: No Chicken Pox: No Measles: No Mumps: No Cancer: Yes
== END 2024-10-03 11:13 | disposition home or self-care (01) ==
LOC: HODSRG 10:19
PROVIDERS: Supervising Provider Surgery; Visit Provider Surgery
DX: Z09 Encounter for follow-up examination after completed treatment for conditions other than malignant neoplasm (principal); C20 Malignant neoplasm of rectum
CPT/HCPCS: 99213; G0463

== ENCOUNTER → 2024-10-05 | Outpatient (CLI) | payer OTHER, SELFPAY ==
--- NOTE | 2024-10-05 08:00 | XR_ITS ---
Examination: MRI abdomen with intravenous contrast. MRI abdomen without intravenous contrast. Date and time of exam: October 05, [address] chest abdomen September 22, 2024 INDICATIONS: CT chest abdomen immediate 2024 subtle enhancing liver lesions, diagnosis rectal cancer Technique: Multiple axial, sagittal and coronal sections of the abdomen obtained. Transverse images, TR 6020, TE 107. T1 weighted transverse images, TR 582, TE 9.5. T2-weighted sagittal images, TR 4000, TE 105. T2-weighted sagittal images, TR 4000, TE 5. Coronal images, TR 4210, TE 107. Axial and coronal images are obtained post 20 cc intravenous injection, gadolinium. Findings: Hepatomegaly 18.6 cm Precontrast images demonstrate 6 mm focus increased signal posterior right lobe the liver axial image 9 Postcontrast images demonstrate lower right lobe subtle enhancing liver lesion, axial image 31 measuring 16 x 12 mm and more caudad wedge-shaped area of enhancement, axial image 37 measuring 25 x 14 mm Spleen is not enlarged No adrenal mass No hydronephrosis Aorta normal size No pericaval periaortic lymphadenopathy No ascites IMPRESSION: Right lower lobe subtle enhancing liver lesions 16 x 12 mm, 25 x 14 mm, differential would include early hepatic metastases
== END | disposition home or self-care (01) ==
PROVIDERS: PCP Physician Assistant; Referring Provider Internal Medicine Hematology & Oncology; Visit Provider Internal Medicine Hematology & Oncology
DX: K76.89 Other specified diseases of liver (principal); C20 Malignant neoplasm of rectum
CPT/HCPCS: 74183; A9579

== ENCOUNTER 2024-10-06 15:58 | Outpatient (RCR) | payer OTHER, SELFPAY ==
--- NOTE | 2024-09-21 13:11 | CTCFLWUP_ITS ---
Patient: MARCIANO JONES : 1960 Page 2 of 2 FOLLOW UP NOTE DATE OF SERVICE: 09/20/2024 NAME: MARCIANO JONES ACCOUNT: [id number] : 1960 AGE: 64 INTERVAL HISTORY: Jamaal an, a cancer patient with shortness of breath, presented with concerns about having a heart attack last weekend. Her history includes bilateral saddle pulmonary embolism, heart failure, hypertension, and DVT. She completed 4 rounds of chemotherapy and takes blood thinners daily, along with metoprolol and losartan for hypertension. Diagnostic tests were ordered including leg ultrasound, D-dimer, echocardiogram, and CT angiogram. Chemotherapy was postponed until blood clot resolution. Ozempic was recommended for weight loss, and FMLA was extended for 3 months. Chief Complaint Shortness of breath, feeling like having a heart attack last weekend, history of bilateral saddle embolism, recent high blood pressure (160) a month ago History of Present Illness Jamaal an is a cancer patient with a history of bilateral saddle embolism, presenting with shortness of breath and concerns about blood clots. The patient has completed 4 rounds of chemotherapy and is currently on blood thinners. The patient reports experiencing shortness of breath, which occurs during daily activities such as walking and washing her car. She tries to walk every day but finds herself easily winded. Last weekend, she felt like she was having a heart attack, experiencing shortness of breath without pain. This differs from a previous episode where she had both pain and shortness of breath. The patient's symptoms are impacting her daily functioning, limiting her ability to perform routine tasks without becoming short of breath. A month ago, the patient saw her primary care physician for high blood pressure (160). Initially, the primary care doctor was hesitant to treat it due to the patient's cancer status. The patient then consulted a technical instructor in [place] who prescribed metoprolol and losartan. She is currently taking these medications as prescribed, with one dose in the morning and one at night. The patient reports adherence to her blood thinner regimen, taking it daily as instructed for the remainder of her life. She understands the importance of blood thinners due to her history of a large clot that led to heart failure. Recently, she was flown to [facility] for a potential thrombectomy, but the procedure was deemed too risky. The patient's weight has been identified as a risk factor for her current health issues. She expresses willingness to consider weight loss medications such as Ozempic or Mounjaro to address this concern. 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 - Hypertension - Deep vein thrombosis (DVT) in leg Surgical History - Thrombectomy considered but not performed due to high risk Medications and Supplements - Blood thinner - Taken daily - Prescribed for the remainder of life - Metoprolol - Prescribed by technical instructor for high blood pressure - Losartan - Prescribed by technical instructor for high blood pressure - Heparin - Given for 4 days during hospitalization - Short-acting, used when procedures may be needed Social History - Living Situation: Lives with son, [id number], and grandson - Exercise: Tries to walk every day; advised to walk every 10 minutes during the day - Activities: Washed car (experienced shortness of breath) Review of Systems General: Positive for shortness of breath with exertion. Cardiovascular: Positive for feeling like having a heart attack, negative for chest pain. Respiratory: Positive for shortness of breath. Musculoskeletal: Positive for leg pain. Laboratory, Imaging, and Diagnostic Test Results - Date: Not specified - Blood pressure: 160 (high) ONCOLOGY HISTORY: DIAGNOSIS: Malignant neoplasm of rectum [ICD10] C20 DATE OF DIAGNOSIS: 05/31/2024 STAGE/TNM: Rectal adenocarcinoma at least stage III as patient have at least 2 lymph nodes which look very suspicious TREATMENT HISTORY: Care?Plan Start?Date Cycle Day Intent Rectal?Wanette?trial?FOLFOX?Adjuvant?after?surgery?clear?margins 08/01/2024 1 14 Curative?(adjuvant) HISTORY OF PRESENT ILLNESS: 64-year-old female who works is here to establish care. Patient is having bleeding per rectum in February. Patient was seen at a local hospital and was told to follow-up with the primary care. Patient eventually had a colonoscopy and underwent biopsy which showed rectal adenocarcinoma. Patient denies any other complaints. No bleeding per rectum right now. OTHER MEDICAL HISTORY/CONDITIONS: CHICKENPOX MUMPS TONSILLITIS EAR INFECTIONS C SECTION (1989) TONSILLECTOMY A CHILD TUBAL LIGATION (1999) OVARIAN CYST REMOVAL COLONOSCOPY DR RENDON 05/31/24 FAMILY HISTORY: Father:?DENIES Mother:?DENIES Sibling:?DENIES Children:?DENIES Cancer?History:?COLON?CANCER?05/2024 Patient?denies?family?cancer?history. 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 Asprin Ec Low Dose - 81 mg Each Day 2. Calcium 600 + D - As directed 3. Compazine - 5 mg 1 tab Daily 4. Eliquis - 5 mg tab Each Day 5. Emla - 2.5-2.5 % As directed 6. Garlique - As directed 7. Lipitor - 40 mg tab Each Day 8. losartan - 50 mg tab Each Day 9. metoprolol succinate - 50 mg 50 mg Each Day 10. ondansetron - 8 mg 1 tab Daily 11. One A Day - As directed 12. Osteo Bi-Flex - As directed 13. Ozempic - 0.25 mg or 0.5 mg (2 mg/3 mL) 0.25 mg weekly Medications Last Reconciled by Marilee Valladares MD on 09/20/2024 ALLERGIES: No Known Drug Allergies REVIEW OF SYSTEMS: A complete 14-point review of systems was performed and is negative except as noted in interval history. PHYSICAL EXAMINATION: VITAL SIGNS: Temperature?99.9, B/P?128/72, Oxygen?Saturation?96% Weight?205?lbs (Change?since?09/09/24:?-10.2?lbs) PAIN: 0 - No pain ECOG Performance Status: 0 - Asymptomatic and fully active GENERAL APPEARANCE: Appears well, in no apparent distress, appropriately interactive. HEENT: Normocephalic, no temporal wasting, normal conjunctiva, no scleral icterus, normal hearing, lips without lesions, neck normal range of motion. CARDIOVASCULAR: Not assessed. PULMONARY: Normal respiratory effort, no respiratory distress or use of accessory muscles, speaking in full sentences, no tachypnea. EXTREMITIES: No pedal edema or cyanosis. SKIN: Normal skin appearance. NEUROLOGIC: Alert and oriented x4. PSHYCHIATRIC: Appropriate affect, mood normal, behavior normal, intact thought and speech. LABORATORY DATA: I have personally reviewed and interpreted each of the patient?s relevant lab tests, abnormal findings are below: Date 09/09/24 09/10/24 ??WHITE?BLOOD?COUNT?(Thou/mm3) ? 4.5 ??RED?BLOOD?COUNT?(Miln/mm3) ? 3.84?L ??HEMOGLOBIN?(gm/dl) ? 12.4 ??HEMATOCRIT?(%) ? 35.3?L ??PLATELET?COUNT?(Thou/mm3) ? 122?L ??NEUTROPHILS?%,?AUTO?(%) ? 60 ??LYMPH?%,?AUTO?(%) ? 26 ??NEUTROPHILS,?AUTO?(Thou/mm3) ? 2.7 ??GLUCOSE,RANDOM?(mg/dL) 119?H 136?H ??BLOOD?UREA?NITROGEN?(mg/dL) 13 13 ??CREATININE?(mg/dL) 0.60 0.70 ??SODIUM?(mmol/L) 144 142 ??POTASSIUM?(mmol/L) 3.4 3.9 ??CHLORIDE?(mmol/L) 112?H 108?H ??CrCl?(CandG)?(ml/min) 111.31 95.40 ??AST/SGOT?(Unit/L) 30 47?H ??ALT/SGPT?(Unit/L) 38 51?H ??ALKALINE?PHOSPHATASE?(Unit/L) 102 111 ??BILIRUBIN,?TOTAL?(mg/dL) 0.5 0.4 ??PROTEIN?TOTAL?(gm/dl) 6.3 6.4 ??ALBUMIN,?SERUM?(gm/dl) 4.1 4.1 ??GLOBULIN?(gm/dl) 2.2?L 2.3 ??ALBUMIN/GLOBULIN?RATIO 1.9 1.8 ??CALCIUM,?SERUM?(mg/dL) 8.5 8.7 ??CALCIUM?SERUM?(CORRECTED)?(mg/dL) 8.5 8.7 ??MAGNESIUM?(mg/dL) ? 1.9 ASSESSMENT/PLAN: #1 rectal adenocarcinoma Likely stage IIIa tumor Patient have few lymph nodes visible on the MRI Patient's tumor is 15 cm from the anal verge S juve, a cancer patient with a history of bilateral saddle pulmonary embolism and heart failure, presents with ongoing shortness of breath and concerns about blood clots. Pulmonary Embolism Assessment: Patient has a history of bilateral saddle pulmonary embolism, which led to heart failure. The patient experienced symptoms resembling a heart attack last weekend, including shortness of breath but no pain. Previously, the patient had both pain and shortness of breath. The patient's age, weight, and ongoing chemotherapy contribute to an increased risk of blood clots. A thrombectomy was previously considered too risky. The patient's current symptoms and history necessitate further evaluation to assess the status of the clot and potential need for intervention. Plan: - Order ultrasound of the leg to check if the clot has dissolved - Order D-dimer test to monitor clot status - Order echocardiogram and CT angiogram - Refer to technical instructor - Continue current blood thinner regimen (patient reports taking it daily for life) - Educate patient on: - Importance of blood thinners - Symptoms requiring emergency care (persistent shortness of breath, leg pain) - Need for breaks during long-distance travel - No chemotherapy until blood clot is resolved Hypertension Assessment: Patient reports a recent episode of high blood pressure (160) seen by primary care physician. Initial treatment was deemed insufficient. Patient subsequently consulted a technical instructor who prescribed metoprolol and losartan. Plan: - Continue metoprolol and losartan as prescribed by technical instructor - Monitor blood pressure Obesity Assessment: Patient's weight is identified as a risk factor for blood clots and potentially cancer. Weight loss is recommended to mitigate these risks. Plan: - Recommend initiation of Ozempic (semaglutide) for weight loss - Start at 0.25 mg weekly, increase monthly - Discuss with primary care physician for prescription - Educate on alternative options like Mounjaro if insurance doesn't cover Ozempic - Encourage daily walking, with breaks every 10 minutes Cancer (unspecified type) Assessment: Patient has undergone 4 cycles of chemotherapy. Current treatment is on hold due to complications from blood clots. Plan: - Postpone chemotherapy until blood clot is resolved - Extend FMLA for 3 months - Follow up to reassess condition and treatment [facility]IN Santamaria ORDERS: Order # Description [id number] Comprehensive Metabolic Panel - 12 + CEA + CBC with Auto Diff [id number] CT Scan + Chest [id number] Cardiac ECHO RETURN TO CLINIC: BILLING AND COMPLIANCE: I reviewed external records from providers outside my specialty as summarized above. I spent a total of 50 minutes on this patient?s care on the day of their visit excluding time spent related to any billed procedures. This time includes time spent with the patient as well as time spent documenting in the medical record, reviewing patients records and tests, obtaining history, placing orders, communicating with other healthcare professionals, counseling the patient, family or caregiver, and/or care coordination for the diagnoses above. Electronically Signed by: Emmett Guido MD T: 1:08 PM CC: PCP: [facility] This document was completed utilizing speech recognition software. Grammatical errors, random word insertions, pronoun errors, and incomplete sentences are an occasional consequence of this system due to software limitations, ambient noise, and hardware issues. Any formal questions or concerns about the content, text or information contained within the body of this dictation should be directly addressed to the provider for clarification.
--- NOTE | 2024-10-12 01:51 | CTCFLWUP_ITS ---
Patient: MARCIANO JONES : 1960 Page 2 of 2 FOLLOW UP NOTE DATE OF SERVICE: 10/06/2024 NAME: MARCIANO JONES ACCOUNT: [id number] : 1960 AGE: 64 INTERVAL HISTORY: Jamaal an, a cancer patient with shortness of breath, presented with concerns about having a heart attack last weekend. Her history includes bilateral saddle pulmonary embolism, heart failure, hypertension, and DVT. She completed 4 rounds of chemotherapy and takes blood thinners daily, along with metoprolol and losartan for hypertension. Diagnostic tests were ordered including leg ultrasound, D-dimer, echocardiogram, and CT angiogram. Chemotherapy was postponed until blood clot resolution. Ozempic was recommended for weight loss, and FMLA was extended for 3 months. Since last visit she is still feeling short of breath. She has been taking Eliquis as prescribed. Patient is nto improving as expected . Chief Complaint Shortness of breath, feeling like having a heart attack last weekend, history of bilateral saddle embolism, recent high blood pressure (160) a month ago History of Present Illness Jamaal an is a cancer patient with a history of bilateral saddle embolism, presenting with shortness of breath and concerns about blood clots. The patient has completed 4 rounds of chemotherapy and is currently on blood thinners. The patient reports experiencing shortness of breath, which occurs during daily activities such as walking and washing her car. She tries to walk every day but finds herself easily winded. Last weekend, she felt like she was having a heart attack, experiencing shortness of breath without pain. This differs from a previous episode where she had both pain and shortness of breath. The patient's symptoms are impacting her daily functioning, limiting her ability to perform routine tasks without becoming short of breath. A month ago, the patient saw her primary care physician for high blood pressure (160). Initially, the primary care doctor was hesitant to treat it due to the patient's cancer status. The patient then consulted a house decorator in [place] who prescribed metoprolol and losartan. She is currently taking these medications as prescribed, with one dose in the morning and one at night. The patient reports adherence to her blood thinner regimen, taking it daily as instructed for the remainder of her life. She understands the importance of blood thinners due to her history of a large clot that led to heart failure. Recently, she was flown to [facility] for a potential thrombectomy, but the procedure was deemed too risky. The patient's weight has been identified as a risk factor for her current health issues. She expresses willingness to consider weight loss medications such as Ozempic or Mounjaro to address this concern. 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 - Hypertension - Deep vein thrombosis (DVT) in leg Surgical History - Thrombectomy considered but not performed due to high risk Medications and Supplements - Blood thinner - Taken daily - Prescribed for the remainder of life - Metoprolol - Prescribed by house decorator for high blood pressure - Losartan - Prescribed by house decorator for high blood pressure - Heparin - Given for 4 days during hospitalization - Short-acting, used when procedures may be needed Social History - Living Situation: Lives with son, [id number], and grandson - Exercise: Tries to walk every day; advised to walk every 10 minutes during the day - Activities: Washed car (experienced shortness of breath) Review of Systems General: Positive for shortness of breath with exertion. Cardiovascular: Positive for feeling like having a heart attack, negative for chest pain. Respiratory: Positive for shortness of breath. Musculoskeletal: Positive for leg pain. Laboratory, Imaging, and Diagnostic Test Results - Date: Not specified - Blood pressure: 160 (high) ONCOLOGY HISTORY:?[facility] Hx? DIAGNOSIS: Malignant neoplasm of rectum [ICD10] C20 DATE OF DIAGNOSIS: 05/31/2024 STAGE/TNM: Rectal adenocarcinoma at least stage III as patient have at least 2 lymph nodes which look very suspicious TREATMENT HISTORY: Care?Plan Start?Date Cycle Day Intent Rectal?Emelle?trial?FOLFOX?Adjuvant?after?surgery?clear?margins 08/01/2024 1 14 Curative?(adjuvant) HISTORY OF PRESENT ILLNESS: 64-year-old female who works is here to establish care. Patient is having bleeding per rectum in February. Patient was seen at a local hospital and was told to follow-up with the primary care. Patient eventually had a colonoscopy and underwent biopsy which showed rectal adenocarcinoma. Patient denies any other complaints. No bleeding per rectum right now. OTHER MEDICAL HISTORY/CONDITIONS: CHICKENPOX MUMPS TONSILLITIS EAR INFECTIONS C SECTION (1989) TONSILLECTOMY A CHILD TUBAL LIGATION (1999) OVARIAN CYST REMOVAL COLONOSCOPY DR RENDON 05/31/24 FAMILY HISTORY: Father:?DENIES Mother:?DENIES Sibling:?DENIES Children:?DENIES Cancer?History:?COLON?CANCER?05/2024 Patient?denies?family?cancer?history. 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 Asprin Ec Low Dose - 81 mg Each Day 2. Calcium 600 + D - As directed 3. Compazine - 5 mg 1 tab Daily 4. Eliquis - 5 mg 1 tab Twice a Day 5. Emla - 2.5-2.5 % As directed 6. Garlique - As directed 7. Lipitor - 40 mg tab Each Day 8. losartan - 50 mg tab Each Day 9. Lovenox - 100 mg/mL 0.97 mL every 12 hrs 10. metoprolol succinate - 50 mg 50 mg Each Day 11. ondansetron - 8 mg 1 tab Daily 12. One A Day - As directed 13. Osteo Bi-Flex - As directed 14. Ozempic - 0.25 mg or 0.5 mg (2 mg/3 mL) 0.25 mg weekly?Palabra Meds? Medications Last Reconciled by Yisel Levine MA on 10/06/2024 ALLERGIES: No Known Drug Allergies REVIEW OF SYSTEMS: A complete 14-point review of systems was performed and is negative except as noted in interval history. PHYSICAL EXAMINATION:?[facility] PE? VITAL SIGNS: Temperature?98.2, B/P?131/83, Oxygen?Saturation?96% Weight?217?lbs (Change?since?09/20/24:?12?lbs) PAIN: 0 - No pain ECOG Performance Status: 1 - Symptomatic; ambulatory; restricted in strenuous activity GENERAL APPEARANCE: Appears well, in no apparent distress, appropriately interactive. HEENT: Normocephalic, no temporal wasting, normal conjunctiva, no scleral icterus, normal hearing, lips without lesions, neck normal range of motion. CARDIOVASCULAR: Not assessed. PULMONARY increased sob EXTREMITIES: No pedal edema or cyanosis. SKIN: Normal skin appearance. NEUROLOGIC: Alert and oriented x4. PSHYCHIATRIC: Appropriate affect, mood normal, behavior normal, intact thought and speech. LABORATORY DATA: I have personally reviewed and interpreted each of the patient?s relevant lab tests, abnormal findings are below: Date 09/10/24 10/07/24 ??WHITE?BLOOD?COUNT?(Thou/mm3) 4.5 6.1 ??RED?BLOOD?COUNT?(Miln/mm3) 3.84?L 3.70?L ??HEMOGLOBIN?(gm/dl) 12.4 11.8?L ??HEMATOCRIT?(%) 35.3?L 34.9?L ??PLATELET?COUNT?(Thou/mm3) 122?L 269 ??NEUTROPHILS?%,?AUTO?(%) 60 56 ??LYMPH?%,?AUTO?(%) 26 32 ??NEUTROPHILS,?AUTO?(Thou/mm3) 2.7 3.4 ??GLUCOSE,RANDOM?(mg/dL) 136?H 113?H ??BLOOD?UREA?NITROGEN?(mg/dL) 13 15 ??CREATININE?(mg/dL) 0.70 0.70 ??SODIUM?(mmol/L) 142 144 ??POTASSIUM?(mmol/L) 3.9 4.1 ??CHLORIDE?(mmol/L) 108?H 108?H ??CrCl?(CandG)?(ml/min) 95.40 95.83 ??AST/SGOT?(Unit/L) 47?H 21 ??ALT/SGPT?(Unit/L) 51?H 25 ??ALKALINE?PHOSPHATASE?(Unit/L) 111 96 ??BILIRUBIN,?TOTAL?(mg/dL) 0.4 0.6 ??PROTEIN?TOTAL?(gm/dl) 6.4 6.7 ??ALBUMIN,?SERUM?(gm/dl) 4.1 4.2 ??GLOBULIN?(gm/dl) 2.3 2.5 ??ALBUMIN/GLOBULIN?RATIO 1.8 1.7 ??CALCIUM,?SERUM?(mg/dL) 8.7 9.0 ??CALCIUM?SERUM?(CORRECTED)?(mg/dL) 8.7 9.0 ASSESSMENT/PLAN:?Stephy Guido Assessment/Plan? #1 rectal adenocarcinoma Likely stage IIIa tumor Patient have few lymph nodes visible on the MRI Patient's tumor is 15 cm from the anal verge S juve, a cancer patient with a history of bilateral saddle pulmonary embolism and heart failure, presents with ongoing shortness of breath and concerns about blood clots. Pulmonary Embolism Assessment: Patient has a history of bilateral saddle pulmonary embolism, which led to heart failure. The patient experienced symptoms resembling a heart attack last weekend, including shortness of breath but no pain. Previously, the patient had both pain and shortness of breath. The patient's age, weight, and ongoing chemotherapy contribute to an increased risk of blood clots. A thrombectomy was previously considered too risky. The patient's current symptoms and history necessitate further evaluation to assess the status of the clot and potential need for intervention. Plan: - angiogram shows persistant clot Changed to lovenox weight based - Educate patient on: - Importance of blood thinners - Symptoms requiring emergency care (persistent shortness of breath, leg pain) - Need for breaks during long-distance travel - No chemotherapy until blood clot is resolved Hypertension Assessment: Patient reports a recent episode of high blood pressure (160) seen by primary care physician. Initial treatment was deemed insufficient. Patient subsequently consulted a house decorator who prescribed metoprolol and losartan. Plan: - Continue metoprolol and losartan as prescribed by house decorator - Monitor blood pressure Obesity Assessment: Patient's weight is identified as a risk factor for blood clots and potentially cancer. Weight loss is recommended to mitigate these risks. Plan: - Recommend initiation of Ozempic (semaglutide) for weight loss - Start at 0.25 mg weekly, increase monthly - Discuss with primary care physician for prescription - Educate on alternative options like Mounjaro if insurance doesn't cover Ozempic - Encourage daily walking, with breaks every 10 minutes Cancer (unspecified type) Assessment: Patient has undergone 4 cycles of chemotherapy. Current treatment is on hold due to complications from blood clots. Plan: - Postpone chemotherapy until blood clot is resolved - Extend FMLA for 3 months - Follow [facility] reassess condition and [facility] ORDERS: Order # Description [id number] Comprehensive Metabolic Panel - 12 + CBC with Auto Diff + CEA [id number] Follow Up 3 Week + RETURN TO CLINIC: BILLING AND COMPLIANCE: I reviewed external records from providers outside my specialty as summarized above. I spent a total of 50 minutes on this patient?s care on the day of their visit excluding time spent related to any billed procedures. This time includes time spent with the patient as well as time spent documenting in the medical record, reviewing patients records and tests, obtaining history, placing orders, communicating with other healthcare professionals, counseling the patient, family or caregiver, and/or care coordination for the diagnoses above. Electronically Signed by: Emmett Guido MD T: 1:49 AM CC: PCP: Referring: Char[facility]le[facility] jackson streetValorie Silverman This document was completed utilizing speech recognition software. Grammatical errors, random word insertions, pronoun errors, and incomplete sentences are an occasional consequence of this system due to software limitations, ambient noise, and hardware issues. Any formal questions or concerns about the content, text or information contained within the body of this dictation should be directly addressed to the provider for clarification.
== END 2024-10-15 23:59 | disposition home or self-care (01) ==
LOC: SCTC 15:58
PROVIDERS: PCP Nurse Practitioner Primary Care; Referring Provider Nurse Practitioner Primary Care; Visit Provider Internal Medicine Hematology & Oncology
DX: C20 Malignant neoplasm of rectum (principal); I26.99 Other pulmonary embolism without acute cor pulmonale; I11.0 Hypertensive heart disease with heart failure; I50.9 Heart failure, unspecified; E66.9 Obesity, unspecified
CPT/HCPCS: 99212; G0463

== ENCOUNTER → 2024-10-07 | Outpatient (CLI) | payer OTHER, SELFPAY ==
[2024-10-07 10:36] LABS: Basophils # (Auto) 0.1 Thou/mm3 (0.0-0.2); Basophils % (Auto) 1 % (0-2.5); Eosinophils # (Auto) 0.1 Thou/mm3 (0.0-0.5); Eosinophils % (Auto) 2 % (0-10); Hematocrit 34.9 % (36.0-46.0); Hemoglobin 11.8 g/dL (12.0-16.0); Immature Granulocytes % (Auto) 0 % (0-0); Immature Granulocytes Auto 0.01 Thou/mm3 (0.00-0.00); Lymphocytes # (Auto) 1.9 Thou/mm3 (1.0-4.8); Lymphocytes % (Auto) 32 % (10-50); Mean Corpuscular HGB Conc 33.8 g/dl (31.0-37.0); Mean Corpuscular Hemoglobin 31.9 pg (25.0-35.0); Mean Corpuscular Volume 94 fL (80-100); Monocytes # (Auto) 0.6 Thou/mm3 (0.0-0.8); Monocytes % (Auto) 10 % (0-12); Neutrophils # (Auto) 3.4 Thou/mm3 (1.8-7.7); Neutrophils % (Auto) 56 % (37-80); Nucleated Red Blood Cell % 0 /100 WBC (0); Platelet Count 269 Thou/mm3 (140-440); RDW Standard Deviation 51.2 fL (36.4-46.3); White Blood Count 6.1 Thou/mm3 (3.6-11.0)
[2024-10-07 10:58] LABS: Alanine Aminotransferase 25 U/L (10-49); Albumin, Serum 4.2 gm/dL (3.4-4.8); Albumin/Globulin Ratio 1.7 (1.2-2.2); Alkaline Phosphatase 96 U/L (46-116); Anion Gap 10 (7-16); Aspartate Amino Transferase 21 U/L (0-34); BUN/Creatinine Ratio 21 Ratio (12-20); Bilirubin,Direct 0.2 mg/dL (0.0-0.3); Bilirubin,Total 0.6 mg/dL (0.3-1.2); Blood Urea Nitrogen 15 mg/dL (9-23); Cardiac Risk Estimate 3.7 RATIO (3.7-5.6); Chloride 108 mMol/L (98-107); Cholesterol 163 mg/dL (132-200); Creatinine (Component) 0.7 mg/dL (0.6-1.3); Globulin 2.5 gm/dL (2.3-3.5); Glucose 113 mg/dL (74-106); HDL Cholesterol 44 mg/dL (40-60); LDL Cholesterol,Calculated 84 mg/dL (0-130); Osmolality,Calculated 288 (275-295); Potassium 4.1 mMol/L (3.4-5.1); Sodium 144 mMol/L (136-145); Total Protein 6.7 gm/dL (5.7-8.2); Triglycerides 174 mg/dL (30-150); eGFR > 60 See Note
== END | disposition home or self-care (01) ==
LOC: COPL 09:53
PROVIDERS: PCP Physician Assistant; Referring Provider Internal Medicine Cardiovascular Disease; Visit Provider Internal Medicine Cardiovascular Disease
DX: I10 Essential (primary) hypertension (principal); E78.5 Hyperlipidemia, unspecified
CPT/HCPCS: 36415; 80053; 80061; 80076; 82248; 84439; 84443; 85025

== ENCOUNTER → 2024-10-24 | Outpatient (CLI) | payer OTHER, SELFPAY ==
[2024-10-24 16:04] LABS: Basophils # (Auto) 0.1 Thou/mm3 (0.0-0.2); Basophils % (Auto) 1 % (0-2.5); Eosinophils # (Auto) 0.1 Thou/mm3 (0.0-0.5); Eosinophils % (Auto) 2 % (0-10); Hematocrit 35.3 % (36.0-46.0); Hemoglobin 11.8 g/dL (12.0-16.0); Immature Granulocytes % (Auto) 1 % (0-0); Immature Granulocytes Auto 0.04 Thou/mm3 (0.00-0.00); Lymphocytes # (Auto) 2.3 Thou/mm3 (1.0-4.8); Lymphocytes % (Auto) 39 % (10-50); Mean Corpuscular HGB Conc 33.4 g/dl (31.0-37.0); Mean Corpuscular Hemoglobin 32.5 pg (25.0-35.0); Mean Corpuscular Volume 97 fL (80-100); Monocytes # (Auto) 0.6 Thou/mm3 (0.0-0.8); Monocytes % (Auto) 10 % (0-12); Neutrophils # (Auto) 2.8 Thou/mm3 (1.8-7.7); Neutrophils % (Auto) 48 % (37-80); Nucleated Red Blood Cell % 0 /100 WBC (0); Platelet Count 309 Thou/mm3 (140-440); Red Blood Count 3.63 Miln/mm3 (4.00-5.20); White Blood Count 5.9 Thou/mm3 (3.6-11.0)
[2024-10-24 16:21] LABS: Alanine Aminotransferase 59 U/L (10-49); Albumin, Serum 4.2 gm/dL (3.4-4.8); Alkaline Phosphatase 76 U/L (46-116); Anion Gap 11 (7-16); BUN/Creatinine Ratio 25 Ratio (12-20); Bilirubin,Total 0.4 mg/dL (0.3-1.2); Blood Urea Nitrogen 15 mg/dL (9-23); Carbon Dioxide 23.7 mMol/L (20.0-31.0); Carcinoembryonic Antigen < 0.5 ng/mL (0.0-5.0); Chloride 110 mMol/L (98-107); Creatinine (Component) 0.6 mg/dL (0.6-1.3); Globulin 2.1 gm/dL (2.3-3.5); Glucose 95 mg/dL (74-106); Osmolality,Calculated 289 (275-295); Potassium 3.9 mMol/L (3.4-5.1); Sodium 145 mMol/L (136-145); Total Protein 6.3 gm/dL (5.7-8.2); eGFR > 60 See Note
== END | disposition home or self-care (01) ==
LOC: SCTO 14:48
PROVIDERS: PCP Internal Medicine; Referring Provider Internal Medicine Hematology & Oncology; Visit Provider Internal Medicine Hematology & Oncology
DX: C20 Malignant neoplasm of rectum (principal)
CPT/HCPCS: 36415; 80053; 82378; 85025

== ENCOUNTER → 2024-11-11 | Outpatient (CLI) | payer OTHER, SELFPAY ==
--- NOTE | 2024-11-11 | XR_ITS ---
Examination: Screening digital mammography, bilateral Computer aided detection 3-D breast Tomosynthesis, bilateral Date and time of exam: November 11, 2024, 0841 hours Compared to mammograms dating to October 25, 2019 Indication: Screening Technique: Nonmagnified MLO, CC views of the breasts to been obtained, reconstructed from 3-D Tomosynthesis images. R2 computer aided detection program utilized for evaluation of suspicious masses and/or abnormal calcifications. 3-D Tomosynthesis images obtained. Findings: Scattered areas of fibroglandular density. Stable circumscribed nodular density inner right breast CC view No interval suspicious masses Impression: BI-RADS category II: Benign Findings. Recommend 1 year follow-up mammogram.
== END | disposition home or self-care (01) ==
PROVIDERS: Referring Provider Physician Assistant; Visit Provider Physician Assistant
DX: Z12.31 Encounter for screening mammogram for malignant neoplasm of breast (principal); R92.323 Mammographic fibroglandular density, bilateral breasts
CPT/HCPCS: 77063; 77067

== ENCOUNTER 2024-12-29 08:06 | Outpatient (RCR) | payer OTHER, SELFPAY ==
--- NOTE | 2024-12-29 09:07 | CTCFLWUP_ITS ---
[facility] [address] [place], [place] [address] FOLLOW-UP NOTE Date: 12/29/2024 MR#: [id number] Name: MARCIANO JONES : 1960 Dx: C20 Malignant neoplasm of rectum Identification. Patient with rectal CA 15 cm from anal verge status post rectosigmoid resection 07/08/[address] Simmons. pT1pN0. 5 lymph nodes were removed. Preop MRI 06/18/2024 revealed 14 mm right external iliac lymph node and small right common femoral lymph nodes. Patient received 4 rounds of chemo which was held due to NC in September. Also history of PE on blood thinners. Was recently evaluated [facility] and reportedly chemo has been suspended. Patient appears comfortable at this time and told her that she could be followed by Dr. Guido in the future. Electronically signed by: Pascual Ramos M.D. 12/29/2024 9:05 AM
== END 2025-01-15 23:59 | disposition home or self-care (01) ==
LOC: SCTC 08:06
PROVIDERS: PCP Physician Assistant; Referring Provider Physician Assistant; Visit Provider Radiology Therapeutic Radiology
DX: C20 Malignant neoplasm of rectum (principal); Z90.49 Acquired absence of other specified parts of digestive tract; Z86.711 Personal history of pulmonary embolism; Z79.01 Long term (current) use of anticoagulants; I25.2 Old myocardial infarction
CPT/HCPCS: 99212; G0463

== ENCOUNTER → 2025-02-27 | Outpatient (CLI) | payer OTHER, SELFPAY ==
[2025-02-27 16:07] LABS: Basophils # (Auto) 0.1 Thou/mm3 (0.0-0.2); Basophils % (Auto) 1 % (0-2.5); Eosinophils # (Auto) 0.1 Thou/mm3 (0.0-0.5); Eosinophils % (Auto) 1 % (0-10); Hematocrit 39.8 % (36.0-46.0); Hemoglobin 13.0 g/dL (12.0-16.0); Immature Granulocytes Auto 0.01 Thou/mm3 (0.00-0.00); Lymphocytes # (Auto) 2.1 Thou/mm3 (1.0-4.8); Lymphocytes % (Auto) 34 % (10-50); Mean Corpuscular HGB Conc 32.7 g/dl (31.0-37.0); Mean Corpuscular Hemoglobin 30.8 pg (25.0-35.0); Mean Corpuscular Volume 94 fL (80-100); Monocytes # (Auto) 0.5 Thou/mm3 (0.0-0.8); Monocytes % (Auto) 8 % (0-12); Neutrophils # (Auto) 3.4 Thou/mm3 (1.8-7.7); Neutrophils % (Auto) 56 % (37-80); Nucleated Red Blood Cell # 0.00 Thou/mm3 (0.00-0.00); Nucleated Red Blood Cell % 0 /100 WBC (0); Platelet Count 267 Thou/mm3 (140-440); RDW Standard Deviation 46.3 fL (36.4-46.3); Red Blood Count 4.22 Miln/mm3 (4.00-5.20); White Blood Count 6.1 Thou/mm3 (3.6-11.0)
[2025-02-27 16:15] LABS: Alanine Aminotransferase 26 U/L (10-49); Albumin, Serum 4.2 gm/dL (3.4-4.8); Albumin/Globulin Ratio 1.9 (1.2-2.2); Alkaline Phosphatase 77 U/L (46-116); Anion Gap 9 (7-16); Aspartate Amino Transferase 19 U/L (0-34); BUN/Creatinine Ratio 17 Ratio (12-20); Bilirubin,Total 0.5 mg/dL (0.3-1.2); Blood Urea Nitrogen 12 mg/dL (9-23); Calcium 9.1 mg/dL (8.3-10.6); Calcium (Corrected) 9.1 mg/dL (8.5-10.1); Carbon Dioxide 27.6 mMol/L (20.0-31.0); Chloride 108 mMol/L (98-107); Creatinine (Component) 0.7 mg/dL (0.6-1.3); Globulin 2.2 gm/dL (2.3-3.5); Glucose 111 mg/dL (74-106); Osmolality,Calculated 289 (275-295); Potassium 4.0 mMol/L (3.4-5.1); Sodium 145 mMol/L (136-145); Total Protein 6.4 gm/dL (5.7-8.2); eGFR > 60 See Note
[2025-02-27 16:16] LABS: Carcinoembryonic Antigen 1.1 ng/mL (0.0-5.0)
== END | disposition home or self-care (01) ==
LOC: SCTO 14:49
PROVIDERS: PCP Physician Assistant; Referring Provider Internal Medicine Hematology & Oncology; Visit Provider Internal Medicine Hematology & Oncology
DX: C20 Malignant neoplasm of rectum (principal)
CPT/HCPCS: 36415; 80053; 82378; 85025

== ENCOUNTER 2025-03-02 11:16 | Outpatient (RCR) | payer OTHER, SELFPAY ==
--- NOTE | 2025-03-13 01:43 | CTCFLWUP_ITS ---
Patient: MARCAINO NUR : 1960 Page 4 of 6 FOLLOW UP NOTE DATE OF SERVICE: 03/02/2025 NAME: MARCIANO NUR ACCOUNT: [id number] : 1960 AGE: 65 INTERVAL HISTORY: Patient with a history of rectal cancer status post FOLFOX 4 cycles. Patient developed PE and chemotherapy was stopped. Chief Complaint Shortness of breath, feeling like having a heart attack last weekend, history of bilateral saddle embolism, recent high blood pressure (160) a month ago History of Present Illness Jamaal an is a cancer patient with a history of bilateral saddle embolism, presenting with shortness of breath and concerns about blood clots. The patient has completed 4 rounds of chemotherapy and is currently on blood thinners. The patient reports experiencing shortness of breath, which occurs during daily activities such as walking and washing her car. She tries to walk every day but finds herself easily winded. Last weekend, she felt like she was having a heart attack, experiencing shortness of breath without pain. This differs from a previous episode where she had both pain and shortness of breath. The patient's symptoms are impacting her daily functioning, limiting her ability to perform routine tasks without becoming short of breath. A month ago, the patient saw her primary care physician for high blood pressure (160). Initially, the primary care doctor was hesitant to treat it due to the patient's cancer status. The patient then consulted a machine adjuster leader in [place] who prescribed metoprolol and losartan. She is currently taking these medications as prescribed, with one dose in the morning and one at night. The patient reports adherence to her blood thinner regimen, taking it daily as instructed for the remainder of her life. She understands the importance of blood thinners due to her history of a large clot that led to heart failure. Recently, she was flown to [facility] for a potential thrombectomy, but the procedure was deemed too risky. The patient's weight has been identified as a risk factor for her current health issues. She expresses willingness to consider weight loss medications such as Ozempic or Mounjaro to address this concern. 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 - Hypertension - Deep vein thrombosis (DVT) in leg Surgical History - Thrombectomy considered but not performed due to high risk Medications and Supplements - Blood thinner - Taken daily - Prescribed for the remainder of life - Metoprolol - Prescribed by machine adjuster leader for high blood pressure - Losartan - Prescribed by machine adjuster leader for high blood pressure - Heparin - Given for 4 days during hospitalization - Short-acting, used when procedures may be needed Social History - Living Situation: Lives with son, [id number], and grandson - Exercise: Tries to walk every day; advised to walk every 10 minutes during the day - Activities: Washed car (experienced shortness of breath) Review of Systems General: Positive for shortness of breath with exertion. Cardiovascular: Positive for feeling like having a heart attack, negative for chest pain. Respiratory: Positive for shortness of breath. Musculoskeletal: Positive for leg pain. Laboratory, Imaging, and Diagnostic Test Results - Date: Not specified - Blood pressure: 160 (high) ONCOLOGY HISTORY: DIAGNOSIS: Malignant neoplasm of rectum [ICD10] C20 DATE OF DIAGNOSIS: 05/31/2024 STAGE/TNM: Rectal adenocarcinoma at least stage III as patient have at least 2 lymph nodes which look very suspicious TREATMENT HISTORY: Care?Plan Start?Date Cycle Day Intent Rectal?[place]?trial?FOLFOX?Adjuvant?after?surgery?clear?margins 08/01/2024 1 14 Curative?(adjuvant) HISTORY OF PRESENT ILLNESS: 65-year-old female who works is here to establish care. Patient is having bleeding per rectum in February. Patient was seen at a local hospital and was told to follow-up with the primary care. Patient eventually had a colonoscopy and underwent biopsy which showed rectal adenocarcinoma. Patient denies any other complaints. No bleeding per rectum right now. OTHER MEDICAL HISTORY/CONDITIONS: CHICKENPOX MUMPS TONSILLITIS EAR INFECTIONS C SECTION (1989) TONSILLECTOMY A CHILD TUBAL LIGATION (1999) OVARIAN CYST REMOVAL COLONOSCOPY DR RENDON 05/31/24 FAMILY HISTORY: Father:?DENIES Mother:?DENIES Sibling:?DENIES Children:?DENIES Cancer?History:?COLON?CANCER?05/2024 Patient?denies?family?cancer?history. 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 Asprin Ec Low Dose - 81 mg Each Day 2. Calcium 600 + D - As directed 3. Compazine - 5 mg 1 tab Daily 4. Eliquis - 5 mg 1 tab Twice a Day 5. Emla - 2.5-2.5 % As directed 6. Garlique - As directed 7. Lipitor - 40 mg tab Each Day 8. losartan - 50 mg tab Each Day 9. Lovenox - 100 mg/mL 0.97 mL every 12 hrs 10. metoprolol succinate - 50 mg 50 mg Each Day 11. ondansetron - 8 mg 1 tab Daily 12. One A Day - As directed 13. Osteo Bi-Flex - As directed 14. Ozempic - 0.25 mg or 0.5 mg (2 mg/3 mL) 0.25 mg weekly Medications Last Reconciled by Marilee Valladares MD on 03/02/2025 ALLERGIES: No Known Drug Allergies REVIEW OF SYSTEMS: A complete 14-point review of systems was performed and is negative except as noted in interval history. PHYSICAL EXAMINATION: VITAL SIGNS: Temperature?96.1, B/P?145/74, Oxygen?Saturation?94% Weight?208?lbs PAIN: 0 - No pain ECOG Performance Status: None GENERAL APPEARANCE: Appears well, in no apparent distress, appropriately interactive. HEENT: Normocephalic, no temporal wasting, normal conjunctiva, no scleral icterus, normal hearing, lips without lesions, neck normal range of motion. CARDIOVASCULAR: Not assessed. PULMONARY increased sob EXTREMITIES: No pedal edema or cyanosis. SKIN: Normal skin appearance. NEUROLOGIC: Alert and oriented x4. PSHYCHIATRIC: Appropriate affect, mood normal, behavior normal, intact thought and speech. LABORATORY DATA: I have personally reviewed and interpreted each of the patient?s relevant lab tests, abnormal findings are below: Date 10/24/24 02/27/25 ??WHITE?BLOOD?COUNT?(Thou/mm3) 5.9 6.1 ??RED?BLOOD?COUNT?(Miln/mm3) 3.63?L 4.22 ??HEMOGLOBIN?(gm/dl) 11.8?L 13.0 ??HEMATOCRIT?(%) 35.3?L 39.8 ??PLATELET?COUNT?(Thou/mm3) 309 267 ??NEUTROPHILS?%,?AUTO?(%) 48 56 ??LYMPH?%,?AUTO?(%) 39 34 ??NEUTROPHILS,?AUTO?(Thou/mm3) 2.8 3.4 ??GLUCOSE,RANDOM?(mg/dL) ? 111?H ??BLOOD?UREA?NITROGEN?(mg/dL) ? 12 ??CREATININE?(mg/dL) ? 0.70 ??SODIUM?(mmol/L) ? 145 ??POTASSIUM?(mmol/L) ? 4.0 ??CHLORIDE?(mmol/L) ? 108?H ??CrCl?(CandG)?(ml/min) ? 94.61 ??AST/SGOT?(Unit/L) ? 19 ??ALT/SGPT?(Unit/L) ? 26 ??ALKALINE?PHOSPHATASE?(Unit/L) ? 77 ??BILIRUBIN,?TOTAL?(mg/dL) ? 0.5 ??PROTEIN?TOTAL?(gm/dl) ? 6.4 ??ALBUMIN,?SERUM?(gm/dl) ? 4.2 ??GLOBULIN?(gm/dl) ? 2.2?L ??ALBUMIN/GLOBULIN?RATIO ? 1.9 ??CALCIUM,?SERUM?(mg/dL) ? 9.1 ??CALCIUM?SERUM?(CORRECTED)?(mg/dL) ? 9.1 ??CEA?(O*)?(ng/ml) ? 1.1 ASSESSMENT/PLAN: #1 rectal adenocarcinoma Likely stage IIIa tumor Patient have few lymph nodes visible on the MRI Patient's tumor is 15 cm from the anal verge Patient was treated with FOLFOX in adjuvant setting Patient developed pulm embolism and chemotherapy stopped Naterra negative Diet and exercise plan discussed with Ms. Nur Continue to closely monitor. No further chemotherapy Pulmonary Embolism Continue Eliquis Monitor blood pressure closely obesity Assessment: Patient's weight is identified as a risk factor for blood clots and potentially cancer. Weight loss is recommended to mitigate these risks. Plan: - Recommend initiation of Ozempic (semaglutide) for weight loss - Start at 0.25 mg weekly, increase monthly - Discuss with primary care physician for prescription - Educate on alternative options like Mounjaro if insurance doesn't cover Ozempic - Encourage daily walking, with breaks every 10 minutes Cancer (unspecified type) Assessment: Patient has undergone 4 cycles of chemotherapy. Current treatment is on hold due to complications from blood clots. Plan: - Postpone chemotherapy until blood clot is resolved - Extend FMLA for 3 months - [facility]: Order # Description [id number] MRI + Abdomen and Pelvis + With W/O Contrast [id number] Comprehensive Metabolic Panel - 12 + CBC with Auto Diff + MD Follow Up 3 Months [id number] MD Follow Up 3 Months RETURN TO CLINIC: I reviewed the diagnosis, prognosis, and recommended treatment/procedure options with the patient (and/or their legal community engagement representative), including the potential benefits, risks, side effects and alternative therapies. We also discussed the option of no treatment and the possibility of clinical trial participation, if applicable. All questions were addressed, and they demonstrated understanding. They provided informed consent to proceed with the proposed plan of care. BILLING AND COMPLIANCE: I reviewed external records from providers outside my specialty as summarized above. I spent a total of 50 minutes on this patient?s care on the day of their visit excluding time spent related to any billed procedures. This time includes time spent with the patient as well as time spent documenting in the medical record, reviewing patients records and tests, obtaining history, placing orders, communicating with other healthcare professionals, counseling the patient, family or caregiver, and/or care coordination for the diagnoses above. Electronically Signed by: {Object.Sanct_ID*PnP.NameFL@M}, {Object.Sanct_ID*PnP.Suffix@U} D: {Object.Sanct_Date} T: {Object.Sanct_Time} CC: PCP: Referring: Little Stanton This document was completed utilizing speech recognition software. Grammatical errors, random word insertions, pronoun errors, and incomplete sentences are an occasional consequence of this system due to software limitations, ambient noise, and hardware issues. Any formal questions or concerns about the content, text or information contained within the body of this dictation should be directly addressed to the provider for clarification.
== END 2025-03-17 23:59 | disposition home or self-care (01) ==
LOC: SCTC 11:16
PROVIDERS: PCP Physician Assistant; Referring Provider Physician Assistant; Visit Provider Internal Medicine Hematology & Oncology
DX: C20 Malignant neoplasm of rectum (principal); I26.99 Other pulmonary embolism without acute cor pulmonale; Z79.01 Long term (current) use of anticoagulants; E66.9 Obesity, unspecified; Z68.35 Body mass index [BMI] 35.0-35.9, adult
CPT/HCPCS: 99212; G0463

== ENCOUNTER 2025-04-17 11:14 | Outpatient (AMB) | payer OTHER, SELFPAY ==
--- NOTE | 2025-04-17 11:15 | GSCOFFNT_ITS ---
Vital Signs - [facility] 04/17/25 11:20 Height 1.63 m Height Method Measured Weight 96.615 kg Weight Measurement Method Standing Scale BMI 36.3 BP 134/83 H Blood Pressure Source Automatic Cuff Blood Pressure Location Left Upper Arm Position Sitting Respiration 18 Pulse 71 Pulse Source Monitor Temp 96.9 F Temp Source Temporal Artery Scan Pulse Oximetry (%) 96 Oxygen Delivery Method Room Air Med/Allergies Allergies & Medications Allergies No Known Drug Allergies Allergy (Verified 04/17/25 11:22) Medication Reconciliation No Known Home Medications 07/25/24 [History Confirmed 04/17/25] MA Intake Visit Data Collection New Patient or Established: Established Patient (seen at [facility] within 3 years) Seen by Clinical Staff ONLY (RN/MA): No Reason for Visit:: RECTAL PAIN Pain Present Currently: Yes Pain Location: Rectum Pain scale:: 1 Pain Scale Used: Curry-Tomlin/Numerical Fire Controlman Required: No PCP or OBGYN visit in last 3 months: Yes Hx Now: No Do You Feel Safe at Home: Yes Authorities Contacted: N/A Smoking Status Smoking Status: Never smoker Immunization / Flu Flu Vaccine in the Last 12 Months: Yes Flu Vaccine Exclusion Criteria: Already Received Past Medical History Past Medical History NEUROLOGIC: Negative Neurological Disorders or Seizures CARDIAC: Positive Hypertension; Negative Cardiac Disorders or Congestive Heart Failure RESPIRATORY: Negative Chronic Obstructive Pulmonary Disease (COPD) or Asthma GASTROINTESTINAL: Positive Gastrointestinal Disorders, Colorectal Cancer and Obesity; Negative Hepatitis GENITOURINARY: Negative Genitourinary Disorders or Renal Disease REPRODUCTIVE: Positive Previous Pregnancies ENDOCRINE: Negative Endocrine Disorders, Diabetes Mellitus Type 1 or Diabetes Mellitus Type 2 HEMATOLOGIC: Negative Blood Disorders or Sickle Cell Disease PSYCHO/SOCIAL: Negative Depression or Anxiety OTHER HISTORY: Positive Cancer and Colorectal Cancer; Negative Hospitalization, Shingles, Blood Transfusions, Anesthesia Reactions, Chicken Pox, Measles or Mumps Family History FAMILY HISTORY: Negative Family Psychiatric Problems, Family Respiratory Disorders, Family Cardiac Disorders, Family Gastrointestinal Problems, Family Cancer, Family Surgery or Family Anesthesia Reaction Surgical History SURGICAL: Positive Tubal Ligation and Section Social History SMOKING STATUS: Smoking status: Never smoker SECOND HAND EXPOSURE: second hand exposure: No ALCOHOL: Alcohol Intake: Never HOUSING: Housing: House LIVES WITH: Lives With: Family HPI HPI Narrative 65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 Pt states she has noted episodes of rectal bleeding as well as a throbbing pain, and admits to having to strain to have BMs which are sometimes pebble-like in nature. She denies any itching and has not noted any external bulging, has never been treated for hemorrhoids in the past. Pt is still on eliquis as she was recommended to have lifelong therapy Since last visit pt underwent MRI 09/2024 which showed two small liver lesions, however pt states she was seen at [facility] and at [facility] and advised that these lesions did not appear to represent metastases. As such, at both visits she was recommended to stop chemotherapy and monitor with CEA which has remained normal. She otherwise feels well with no abdominal pain, no nausea and no changes in appetite or weight ROS Review of Systems Systems Reviewed: All systems reviewed, normal except as documented Objective/Exam General General Appearance: alert, cooperative and well groomed Resp Respiratory exam: Absent respiratory distress Abdominal Abdominal exam: Present soft; Absent distention or tenderness Rectal Rectal exam: Present normal inspection and hemorrhoids (small internal hemorrhoid seen on anoscopy) Assessment & Plan Diagnosis / Problem List (1) Rectal adenocarcinoma: Status: Acute Assessment & Plan: 65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 Her symptoms may be related to internal hemorrhoids combined with eliquis use, however I recommended surveillance colonoscopy as it has been almost one year since her previous scope. I explained benefits/risks including bleeding and perforation requiring emergency surgery, and informed pt to hold eliquis 2 days before the procedure. All questions were answered and pt is agreeable with this plan Office Procedures GNS Level of Care Nursing/Assessment Patient Status: Established Patient Nursing Assessment/Reassesment: Medication Reconciliation, Update PMH in EMR and Vital Signs Coordination of Care: Complex Care and Chronic Disease 1-5, Education Complex Pt/Fam, Consent,records obtained, informed consent, Results/Orders obtained and Staff clarify orders Established Patient Charge Established Patient Point Assignment: 95 Established Patient Point Charge: EP Level 3 (80-115) Patient Portal Questionaires Social History Living Situation History Housing: House Housing Other:: Pt lives with family Tobacco History Smoking Status: Never smoker Second Hand Smoke Exposure: No Alcohol History Alcohol Intake: Never Domestic Abuse History Do You Feel Safe at Home: Yes Review of Systems Report any current symptoms Only answer those that you have currently: Past Medical History Past Medical History Have you ever been diagnosed with any of the following: Neurological Problems Seizures: No Cardiology Problems Congestive Heart Failure: No Hypertension: Yes Respiratory Problems Chronic Obstructive Pulmonary Disease (COPD): No Asthma: No Stomache/Intestinal Problems Hepatitis: No Colorectal Cancer: Yes Obesity: Yes Genital/Urinary Problems Renal Disease: No Reproductive Problems Previous Pregnancies: Yes Endocrine Problems Diabetes Mellitus Type 1: No Diabetes Mellitus Type 2: No Blood Problems Sickle Cell Disease: No Psychologic Problems Depression: No Anxiety: No Other Problems Hospitalization: No Shingles: No Blood Transfusions: No Anesthesia Reactions: No Chicken Pox: No Measles: No Mumps: No Cancer: Yes
[2025-04-17 11:20] VITALS: BP 134/83; PULSE 71; RESP 18; TEMP 36.1; O2SAT 96; BMI 36.3
== END 2025-04-17 12:00 | disposition home or self-care (01) ==
LOC: HODSRG 11:14
PROVIDERS: PCP Physician Assistant; Referring Provider Physician Assistant; Supervising Provider Surgery; Visit Provider Surgery
DX: C20 Malignant neoplasm of rectum (principal); K64.8 Other hemorrhoids; I10 Essential (primary) hypertension; E66.9 Obesity, unspecified; Z68.36 Body mass index [BMI] 36.0-36.9, adult
CPT/HCPCS: 99213; G0463

== ENCOUNTER → 2025-04-17 | Outpatient (CLI) | payer OTHER, SELFPAY ==
[2025-04-17 13:13] LABS: Basophils # (Auto) 0.1 Thou/mm3 (0.0-0.2); Basophils % (Auto) 1 % (0-2.5); Eosinophils # (Auto) 0.2 Thou/mm3 (0.0-0.5); Eosinophils % (Auto) 2 % (0-10); Hematocrit 39.2 % (36.0-46.0); Hemoglobin 13.1 g/dL (12.0-16.0); Immature Granulocytes Auto 0.01 Thou/mm3 (0.00-0.00); Lymphocytes # (Auto) 2.5 Thou/mm3 (1.0-4.8); Lymphocytes % (Auto) 34 % (10-50); Mean Corpuscular HGB Conc 33.4 g/dl (31.0-37.0); Mean Corpuscular Hemoglobin 31.6 pg (25.0-35.0); Mean Corpuscular Volume 95 fL (80-100); Monocytes # (Auto) 0.6 Thou/mm3 (0.0-0.8); Monocytes % (Auto) 8 % (0-12); Neutrophils # (Auto) 4.2 Thou/mm3 (1.8-7.7); Neutrophils % (Auto) 55 % (37-80); Nucleated Red Blood Cell # 0.00 Thou/mm3 (0.00-0.00); Nucleated Red Blood Cell % 0 /100 WBC (0); Platelet Count 267 Thou/mm3 (140-440); RDW Standard Deviation 45.8 fL (36.4-46.3); Red Blood Count 4.15 Miln/mm3 (4.00-5.20); White Blood Count 7.6 Thou/mm3 (3.6-11.0)
[2025-04-17 13:32] LABS: Alanine Aminotransferase 27 U/L (10-49); Albumin, Serum 4.6 gm/dL (3.4-4.8); Albumin/Globulin Ratio 2.1 (1.2-2.2); Alkaline Phosphatase 97 U/L (46-116); Anion Gap 9 (7-16); Aspartate Amino Transferase 19 U/L (0-34); BUN/Creatinine Ratio 18 Ratio (12-20); Bilirubin,Total 0.6 mg/dL (0.3-1.2); Blood Urea Nitrogen 14 mg/dL (9-23); Calcium 9.5 mg/dL (8.3-10.6); Calcium (Corrected) 9.5 mg/dL (8.5-10.1); Carbon Dioxide 26.3 mMol/L (20.0-31.0); Chloride 108 mMol/L (98-107); Creatinine (Component) 0.8 mg/dL (0.6-1.3); Globulin 2.2 gm/dL (2.3-3.5); Glucose 109 mg/dL (74-106); Osmolality,Calculated 286 (275-295); Potassium 3.7 mMol/L (3.4-5.1); Sodium 143 mMol/L (136-145); Total Protein 6.8 gm/dL (5.7-8.2); eGFR > 60 See Note
== END | disposition home or self-care (01) ==
LOC: SCTO 12:31
PROVIDERS: PCP Physician Assistant; Referring Provider Internal Medicine Hematology & Oncology; Visit Provider Internal Medicine Hematology & Oncology
DX: C20 Malignant neoplasm of rectum (principal)
CPT/HCPCS: 36415; 80053; 85025

== ENCOUNTER 2025-05-02 07:10 | Day surgery (SDC) | payer OTHER, SELFPAY ==
[2025-05-01 14:00] VITALS: BMI 35.4
[2025-05-02] VITALS (12 sets, daily range): BP systolic 114–158; BP diastolic 67–101; PULSE 61–77; RESP 12–20; TEMP 36.4; O2SAT 96–99; BMI 37.5
[2025-05-02] MEDS: RINGERS LACTATED 500 ML 500 ML 20 ML IV (08:14)
[2025-05-02] MEDS: MIDAZOLAM INJ 1 MG/ML VIAL 2 ML (ASD USE ONLY) 2 MG IVP (08:25)
[2025-05-02] MEDS: fentaNYL CIT INJ 50 mCg/ML AMP 2ML (ASD USE ONLY) IVP (08:25)
== END 2025-05-02 09:32 | disposition home or self-care (01) ==
PROVIDERS: PCP Physician Assistant; Referring Provider Surgery; Visit Provider Surgery
PROC: 0DBE8ZX Excision of Large Intestine, Via Natural or Artificial Opening Endoscopic, Diagnostic (ICD-10-PCS; CPT 45380; principal; 2025-05-02 10:00)
DX: Z12.11 Encounter for screening for malignant neoplasm of colon (principal); Z85.048 Personal history of other malignant neoplasm of rectum, rectosigmoid junction, and anus; D12.5 Benign neoplasm of sigmoid colon; D12.8 Benign neoplasm of rectum; K57.30 Diverticulosis of large intestine without perforation or abscess without bleeding; K63.5 Polyp of colon
CPT/HCPCS: 45380; A4649; J1200; J2250; J3010; J7120

== ENCOUNTER 2025-05-08 14:17 | Outpatient (AMB) | payer OTHER, SELFPAY ==
--- NOTE | 2025-05-08 14:29 | PD.GSCLVISIT ---
Vital Signs - [facility] 05/08/25 14:30 Height 1.6 m Height Method Measured Weight 97.692 kg Weight Measurement Method Standing Scale BMI 38.1 BP 137/74 H Blood Pressure Source Automatic Cuff Blood Pressure Location Left Upper Arm Position Sitting Respiration 18 Pulse 75 Pulse Source Monitor Temp 97.3 F Temp Source Temporal Artery Scan Pulse Oximetry (%) 96 Oxygen Delivery Method Room Air Med/Allergies Allergies & Medications Allergies No Known Drug Allergies Allergy (Verified 05/08/25 14:31) Medication Reconciliation peg 3350-electrolytes 236 gram-22.74 gram-6.74 gram-5.86 gram solution (Golytely) 240 ml PO Q10M #4,000 mL 04/28/25 [Rx Confirmed 05/08/25] apixaban 5 mg tablet (Eliquis) 5 mg PO BID Blood clots in my heart and marlene 05/01/25 [History Confirmed 05/08/25] Held on 05/02/25. Instructions: Resume on 05/05/25. aspirin 81 mg chewable tablet 81 mg PO QDAY 05/01/25 [History Confirmed 05/08/25] Held on 05/02/25. Instructions: Resume on 05/05/25. atorvastatin 40 mg tablet 40 mg PO QDAY 05/01/25 [History Confirmed 05/08/25] losartan 50 mg tablet 50 mg PO DAILY Hypertension 05/01/25 [History Confirmed 05/08/25] metoprolol succinate 50 mg tablet,extended release 24 hr 50 mg PO QDAY 05/01/25 [History Confirmed 05/08/25] MA Intake Visit Data Collection New Patient or Established: Established Patient (seen at [facility] within 3 years) Seen by Clinical Staff ONLY (RN/MA): No Reason for Visit:: COLONOSCOPY F/U Pain Present Currently: No Pain Scale Used: Curry-Tomlin/Numerical Professor Of Biostatistics Required: No PCP or OBGYN visit in last 3 months: Yes Hx Now: No Do You Feel Safe at Home: Yes Authorities Contacted: N/A Smoking Status Smoking Status: Never smoker Immunization / Flu Flu Vaccine in the Last 12 Months: No Flu Vaccine Exclusion Criteria: Refused by Patient Past Medical History Past Medical History NEUROLOGIC: Negative Neurological Disorders or Seizures CARDIAC: Positive Cardiac Disorders (heart attack 1 year ago) and Hypertension; Negative Congestive Heart Failure RESPIRATORY: Negative Chronic Obstructive Pulmonary Disease (COPD) or Asthma GASTROINTESTINAL: Positive Gastrointestinal Disorders, Colorectal Cancer and Obesity; Negative Hepatitis GENITOURINARY: Negative Genitourinary Disorders or Renal Disease REPRODUCTIVE: Positive Previous Pregnancies ENDOCRINE: Negative Endocrine Disorders, Diabetes Mellitus Type 1 or Diabetes Mellitus Type 2 HEMATOLOGIC: Negative Blood Disorders or Sickle Cell Disease PSYCHO/SOCIAL: Negative Depression or Anxiety OTHER HISTORY: Positive Cancer and Colorectal Cancer; Negative Hospitalization, Shingles, Blood Transfusions, Anesthesia Reactions, Chicken Pox, Measles or Mumps Family History FAMILY HISTORY: Negative Family Psychiatric Problems, Family Respiratory Disorders, Family Cardiac Disorders, Family Gastrointestinal Problems, Family Cancer, Family Surgery or Family Anesthesia Reaction Surgical History SURGICAL: Positive Tubal Ligation and Section Social History SMOKING STATUS: Smoking status: Never smoker SECOND HAND EXPOSURE: second hand exposure: No ALCOHOL: Alcohol Intake: Never HOUSING: Housing: House LIVES WITH: Lives With: Family HPI HPI Narrative 65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 Prior to colonoscopy pt had been having rectal bleeding; she states she has not had any recently. On colonoscopy there were areas not well visualized due to opaque stool but she had three polyps removed, two of which were tubular adenoma <1cm. 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 Given inadequate visualization I recommended repeat colonscopy within 1-3 years. All questions were answered and pt is agreeable with this plan Office Procedures GNS Level of Care Nursing/Assessment Patient Status: Established Patient Nursing Assessment/Reassesment: Medication Reconciliation, Update PMH in EMR and Vital Signs Coordination of Care: Complex Care and Chronic Disease 1-5, Education Complex Pt/Fam, Consent,records obtained, informed consent, Results/Orders obtained and Staff clarify orders Established Patient Charge Established Patient Point Assignment: 95 Established Patient Point Charge: EP Level 3 (30-115) Patient Portal Questionaires Social History Living Situation History Housing: House Housing Other:: Pt lives with family Tobacco History Smoking Status: Never smoker Second Hand Smoke Exposure: No Alcohol History Alcohol Intake: Never Domestic Abuse History Do You Feel Safe at Home: Yes Review of Systems Report any current symptoms Only answer those that you have currently: Past Medical History Past Medical History Have you ever been diagnosed with any of the following: Neurological Problems Seizures: No Cardiology Problems Congestive Heart Failure: No Hypertension: Yes Respiratory Problems Chronic Obstructive Pulmonary Disease (COPD): No Asthma: No Stomache/Intestinal Problems Hepatitis: No Colorectal Cancer: Yes Obesity: Yes Genital/Urinary Problems Renal Disease: No Reproductive Problems Previous Pregnancies: Yes Endocrine Problems Diabetes Mellitus Type 1: No Diabetes Mellitus Type 2: No Blood Problems Sickle Cell Disease: No Psychologic Problems Depression: No Anxiety: No Other Problems Hospitalization: No Shingles: No Blood Transfusions: No Anesthesia Reactions: No Chicken Pox: No Measles: No Mumps: No Cancer: Yes
[2025-05-08 14:30] VITALS: BP 137/74; PULSE 75; RESP 18; TEMP 36.3; O2SAT 96; BMI 38.1
== END 2025-05-08 14:37 | disposition home or self-care (01) ==
LOC: HODSRG 14:17
PROVIDERS: PCP Physician Assistant; Referring Provider Physician Assistant; Supervising Provider Surgery; Visit Provider Surgery
DX: Z71.2 Person consulting for explanation of examination or test findings (principal); D12.6 Benign neoplasm of colon, unspecified; I10 Essential (primary) hypertension; E66.9 Obesity, unspecified; Z68.38 Body mass index [BMI] 38.0-38.9, adult
CPT/HCPCS: 99213; G0463